=== PATIENT | female | born 1940 | race Hispanic/Latino ===

== ENCOUNTER 2018-12-29 17:20 | Inpatient (IN) | payer MEDICARE ==
--- NOTE | 2018-12-29 17:55 | Event Note ---
ED Screening Note Date of service: 12/29/18 Time: 17:50 ED Screening Note: 78 y/o female comes in for sliding off her bed. C/O lower back and left side and right foot pain. This initial assessment/diagnostic orders/clinical plan/treatment(s) is/are subject to change based on patients health status, clinical progression and re- assessment by fellow clinical providers in the ED. Further treatment and workup at subsequent clinical providers discretion. Patient/guardian urged not to elope from the ED as their condition may be serious if not clinically assessed and managed. Initial orders include:
[2018-12-29 18:17] LABS: Bilirubin,Urine NEG (Negative); Blood,Urine LG (Negative); Color,Urine Yellow (Yellow); Mucus,Urine FEW /HPF; Urobilinogen,Urine < 2.0 mg/dL (<2.0)
[2018-12-29 18:19] LABS: WBC,Urine > 182.0 /HPF (0.0-6.0)
--- NOTE | 2018-12-29 18:52 | XRay Report ---
LUMBAR SPINE 2 VIEWS INDICATION / CLINICAL INFORMATION: back pain. COMPARISON: None available. FINDINGS: Moderate degenerative change. Significant disc space narrowing and hypertrophic spurring at L5-S1. Mu ch less prominent disc space narrowing at L4-5, minimal (5 mm) anterolistheses of L4 on L5. No fracture or other acute abnormality. Signer Name: Fritz Juan MD Signed: 12/29/2018 6:48 PM [facility]station Name: [id number]
[2018-12-29 19:18] LABS: Hematocrit 30.9 % (30.3-42.9); Hemoglobin 10.3 gm/dl (10.1-14.3); Mean Corpuscular HGB Conc 33 % (30-34); Mean Corpuscular Volume 90 fl (79-97); Platelet Count 527 K/mm3 (140-440); Red Blood Count 3.42 M/mm3 (3.65-5.03); Red Cell Distribution Width 13.1 % (13.2-15.2)
[2018-12-29 19:35] LABS: Albumin 3.5 g/dL (3.9-5); Calcium 10.4 mg/dL (8.4-10.2)
[2018-12-29 19:56] LABS: Basophils % (Manual) 0 % (0.0-1.8); Platelet Estimate Appears Increased; RBC Morphology Normal; Total Cells Counted 100
[2018-12-29] MEDS ORDERED: INSULIN REGULAR, HUMAN 100 UNITS/1 ML IV ONE (21:24)
--- NOTE | 2018-12-29 22:12 | Emergency Department Report ---
HPI - General Chief Complaint: Fall Time Seen by Provider: 12/29/18 17:50 - HPI HPI: 78-year-old female presents to the emergency department with complaint of her second fall in 1 week. She slid off the bed when trying to put her slippers on and was unable to get back up. She also complains of elevated blood sugar despite compliance with her glyburide. She complains of some left lower back pain after the fall. She denies hitting her head or any loss of consciousness or any dizziness. She has a past medical history of hyx-[id number] diabetes, hypertension and kidney stones. She denies any vision change, slurred speech or any other neurological deficits. She goes to the [facility] resident clinic for primary care. The patient also complains of having a decreased appetite and decreased oral intake as she says t hat when she eats something it makes her nauseated. ED Past Medical Hx - Past Medical History Previous Medical History?: Yes Hx Hypertension: Yes Hx Diabetes: Yes (type 2) Hx Renal Disease: (kidney stones) Hx Arthritis: Yes Hx Seizures: No Hx Asthma: No Hx HIV: No - Surgical History Hx Appendectomy: Yes Hx Breast Surgery: Yes (RIGHT & LEFT CYSTS) - Social History Smoking Status: Never Smoker Substance Use Type: None - Medications Home Medications: Home Medications Medication Instructions Recorded Confirmed Last Taken Type Aspirin [Adult Low Dose Aspirin EC] 81 mg PO DAILY 06/15/15 06/15/15 Unknown History Atorvastatin [Lipitor] 80 mg PO QHS 06/15/15 06/15/15 Unknown History Cholecalciferol (Vitamin D3) 4,000 unit PO DAILY 06/15/15 06/15/15 Unknown History [Vitamin D3 3,000 unit] Lisinopril/Hydrochlorothiazide 1 tab PO QDAY 06/15/15 06/15/15 Unknown History [Zestoretic 10-12.5 mg] Metformin HCl [Glucophage] 1,000 mg PO BID 06/15/15 06/15/15 Unknown History Timolol 0.5% [Timoptic] 1 drops OP DAILY 06/15/15 06/15/15 Unknown History glipiZIDE [Glucotrol] 10 mg PO QDAY 06/15/15 06/15/15 Unknown History Fluticasone [Flonase] 100 mcg NS QDAY #1 bottle 06/16/15 Unknown Rx levoFLOXacin [Levaquin] 250 mg PO QDAY #8 tablet 06/16/15 Unknown Rx ED Review of Systems ROS: Stated complaint: DIABETIC/FELL TWICE/NOT APPETITE Other details as noted in HPI Comment: All other systems reviewed and negative Constitutional: weakness. denies: chills, fever Eyes: denies: eye pain, vision change ENT: denies: ear pain, throat pain Respiratory: denies: cough, shortness of breath Cardiovascular: denies: chest pain, palpitations Gastrointestinal: nausea. denies: abdominal pain, vomiting Genitourinary: denies: dysuria, discharge Musculoskeletal: back pain. denies: arthralgia Skin: denies: rash, lesions Neurological: denies: headache, numbness, paresthesias Physical Exam - Physical Exam Vital Signs: Vital Signs 12/29/18 12/29/18 17:26 21:20 Temperature 98.8 F Pulse Rate 108 H 89 Respiratory 17 12 Rate Blood Pressure 176/66 Blood Pressure 183/80 [Left] O2 Sat by Pulse 100 98 Oximetry Physical Exam: GENERAL: The patient is well-developed well-nourished. HENT: Normocephalic. Atraumatic. Patient has moist mucous membranes. EYES: Extraocular motions are intact. Pupils equal reactive to light bilaterally. NECK: Supple. Trachea is midline. CHEST/LUNGS: Clear to auscultation. There is no respiratory distress noted. HEART/CARDIOVASCULAR: Regular. There is mild tachycardia. There is no murmur. ABDOMEN: Abdomen is soft, nontender. Patient has normal bowel sounds. There is no abdominal distention. SKIN: Skin is warm and dry. NEURO: The patient is awake, alert, and oriented. The patient is cooperative. The patient has no focal neurologic deficits. Normal speech. Cranial nerves II through XII grossly intact. MUSCULOSKELETAL: There is no tenderness or deformity. There is no evidence of acute injury. ED Course Vital Signs 12/29/18 12/29/18 17:26 21:20 Temperature 98.8 F Pulse Rate 108 H 89 Respiratory 17 12 Rate Blood Pressure 176/66 Blood Pressure 183/80 [Left] O2 Sat by Pulse 100 98 Oximetry ED Medical Decision Making - Lab Data Result diagrams: 12/29/18 19:01 12/29/18 19:01 - Radiology Data Radiology results: image reviewed interpreted by me: X-ray of the lumbar spine does not show any fracture, subluxation or any acute process. - Medical Decision Making This patient presents to the emergency department with the complaint of a fall out of bed while trying to put on her slippers that caused some low back pain. 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 Her serum blood sugar came back at about 550. There is some mild venous acidosis but there is no significant elevation in the anion gap and no ketones found in the urine or serum ketones. She does not appear in diabetic ketoacidosis. She was given IV insulin to start treating the hyperglycemia. The patient does not have a leukocytosis and a urinary tract infection. Urine cultures have been sent and the patient was started on Rocephin. She will be admitted to the hospital for further evaluation and treatment was accepted for admission by the hospitalist, Dr. Nicole. - Differential Diagnosis DKA, HHNK, Sepsis, SIRS, Electrolyte Abnormalities Critical Care Time: No Critical care attestation.: If time is entered above; I have spent that time in minutes in the direct care of this critically ill patient, excluding procedure time. ED Disposition Clinical Impression: Uncontrolled diabetes mellitus Qualifiers: Diabetes mellitus type: type 2 Glycemic state: with hyperglycemia Qualified Code(s): E11.65 - Type 2 diabetes mellitus with hyperglycemia UTI (urinary tract infection) Qualifiers: Urinary tract infection type: acute cystitis Hematuria presence: without hematuria Qualified Code(s): N30.00 - Acute cystitis without hematuria Hypertension Qualifiers: Hypertension type: essential hypertension Qualified Code(s): I10 - Essential (primary) hypertension Leukocytosis Qualifiers: Leukocytosis type: unspecified Qualified Code(s): D72.829 - Elevated white blood cell count, unspecified Disposition: OP ADMIT IP TO THIS HOSP Is pt being admited?: Yes Condition: Fair Time of Disposition: 00:31
[2018-12-29 22:14] LABS: Bilirubin,Urine NEG (Negative); Blood,Urine LG (Negative); Color,Urine Yellow (Yellow); Mucus,Urine FEW /HPF; Urobilinogen,Urine < 2.0 mg/dL (<2.0)
[2018-12-29] MEDS ORDERED: cefTRIAXone/NS 1 GM/50 ML 1 GM/50 ML BAG IV ONE (22:26)
[2018-12-30] MEDS ORDERED: DEXTROSE 50% IN WATER (25GM) 50 ML SYRINGE IV PRN (00:48)
[2018-12-30] MEDS ORDERED: oxyCODONE /ACETAMINOPHEN 5-325MG TAB PO PRN (00:56)
--- NOTE | 2018-12-30 00:58 | History and Physical Report ---
<PHILIP COOMBS - Last Filed: 12/30/18 01:01> History of Present Illness Date of examination: 12/29/18 Date of admission: 12/29/18 23:21 Chief complaint: Recent fall and decreased appetite History of present illness: 68-year-old female with history of hypertension, diabetes, CKD, and kidney stones since [place] ED with complaints of lower back pain after falling earlier today. Pt daughters are present at bedside and have assisted with providing history. Patient states that she slipped off bed and fell onto the sandy or while attempting to put on her slippers earlier today and was unable to get back up. Patient states that this is her second fall within the past week. Patient mentions that she fell on or around December 19 while at home attempted to stand up her knees just gave out. She denies loss of consciousness, head injury/trauma, or headache. However, she is complaining of lower back pain related to her recent fall. Additionally she complains of elevated blood sugar despite being compliant with anti-glycemic medication. She acknowledges decreased appetite and states that she feels nauseated at times. She goes to [facility] for all her primary medical care. Past History Past Medical History: arthritis, diabetes, hypertension, renal failure, other (kidney stones) Past Surgical History: appendectomy, Other (Breast Surgery (Right & left breast cysts)) Social history: no significant social history, lives with family Family history: no significant family history Medications and Allergies Allergies Allergy/AdvReac Type Severity Reaction Status Date / Time chlordiazepoxide HCl Allergy Rash Verified 09/14/13 14:26 [From Librium] Home Medications Medication Instructions Recorded Confirmed Last Taken Type Aspirin [Adult Low Dose Aspirin EC] 81 mg PO DAILY 06/15/15 06/15/15 Unknown History Atorvastatin [Lipitor] 80 mg PO QHS 06/15/15 06/15/15 Unknown History Cholecalciferol (Vitamin D3) 4,000 unit PO DAILY 06/15/15 06/15/15 Unknown History [Vitamin D3 3,000 unit] Lisinopril/Hydrochlorothiazide 1 tab PO QDAY 06/15/15 06/15/15 Unknown History [Zestoretic 10-12.5 mg] Metformin HCl [Glucophage] 1,000 mg PO BID 06/15/15 06/15/15 Unknown History Timolol 0.5% [Timoptic] 1 drops OP DAILY 06/15/15 06/15/15 Unknown History glipiZIDE [Glucotrol] 10 mg PO QDAY 06/15/15 06/15/15 Unknown History Fluticasone [Flonase] 100 mcg NS QDAY #1 bottle 06/16/15 Unknown Rx levoFLOXacin [Levaquin] 250 mg PO QDAY #8 tablet 06/16/15 Unknown Rx Active Meds: Active Medications Acetaminophen (Tylenol) 650 mg PO Q4H PRN PRN Reason: Pain MILD(1-3)/Fever >100.5/NEAL Dextrose (D50w (25gm) Syringe) 50 ml IV Q30MIN PRN; Protocol PRN Reason: Hypoglycemia Docusate Sodium (Colace) 100 mg PO BID ALF Enoxaparin Sodium (Enoxaparin) 30 mg SUB-Q QDAY ALF Hydralazine HCl (Apresoline) 10 mg IV Q4HR PRN PRN Reason: Blood Pressure Sodium Chloride (Nacl 0.9% 1000 Ml) 1,000 mls @ 75 mls/hr IV DIRECT ALF Ceftriaxone Sodium (Rocephin/Ns 1 Gm/50 Ml) 1 gm in 50 mls @ 100 mls/hr IV Q24HR ALF; Protocol Insulin Glargine (Lantus) 20 units SUB-Q QAMDIAB ALF Insulin Human Lispro (Humalog) 0 unit SUB-Q Q4HR ALF; Protocol Ondansetron HCl (Zofran) 4 mg IV Q8H PRN PRN Reason: Nausea And Vomiting Oxycodone/Acetaminophen (Percocet 5/325) 1 tab PO Q6H PRN PRN Reason: Pain, Moderate (4-6) Sodium Chloride (Sodium Chloride Flush Syringe 10 Ml) 10 ml IV BID ALF Sodium Chloride (Sodium Chloride Flush Syringe 10 Ml) 10 ml IV PRN PRN PRN Reason: LINE FLUSH Review of Systems All systems: negative Constitutional: poor appetite Musculoskeletal: low back pain, frequent falls (2x in past week) Exam - Physical Exam Narrative exam: Physical exam General appearance: Present: No acute distress, alert and oriented 3, well developed, pleasant, older adult female - EENT Eyes: Present: PERRL, EOM intact ENT: hearing intact, missing teeth - Neck Neck: Present: supple, normal ROM - Respiratory Respiratory effort: Non-labored Respiratory: CTA bilaterally - Cardiovascular Heart rate: 108 (bpm) Rhythm: Sinus tachycardia Heart Sounds: Present: S1 & S2. Absent: rub, click - Extremities Extremities: no ischemia, pulses intact, - Peripheral Assessment Peripheral Pulses: within normal limits - Abdominal General gastrointestinal: soft, non-tender, normal bowel sounds - Integumentary Integumentary: Present: warm, dry - Musculoskeletal Musculoskeletal: Generalized bilateral lower extremity weakness, 3/5 BLE motor strength, Able to move all extremities -Neurological Neurological: CN II-XII intact - Psychiatric Psychiatric: Appropriate for situation ,cooperative - Constitutional Vitals: Temp Pulse Resp BP Pulse Ox 98.8 F 78 14 158/80 97 12/29/18 17:26 12/29/18 22:45 12/29/18 22:45 12/29/18 22:45 12/29/18 22:45 Results - Labs CBC & Chem 7: 12/29/18 19:01 12/29/18 19: Labs: Laboratory Last Values WBC 20.2 K/mm3 (4.5-11.0) H 12/29/18 19: RBC 3.42 M/mm3 (3.65-5.03) L 12/29/18 19: Hgb 10.3 gm/dl (10.1-14.3) 12/29/18 19: Hct 30.9 % (30.3-42.9) 12/29/18 19: MCV 90 fl (79-97) 12/29/18 19: MCH 30 pg (28-32) 12/29/18 19: MCHC 33 % (30-34) 12/29/18 19: RDW 13.1 % (13.2-15.2) L 12/29/18 19: Plt Count 527 K/mm3 (140-440) H 12/29/18 19: Add Manual Diff Complete 12/29/18 19: Total Counted 100 12/29/18 19: Seg Neuts % (Manual) 93.0 % (40.0-70.0) H 12/29/18 19: Band Neutrophils % 0 % 12/29/18 19: Lymphocytes % (Manual) 3.0 % (13.4-35.0) L 12/29/18 19:01 Reactive Lymphs % (Man) 0 % 12/29/18 19:01 Monocytes % (Manual) 3.0 % (0.0-7.3) 12/29/18 19:01 Eosinophils % (Manual) 1.0 % (0.0-4.3) 12/29/18 19:01 Basophils % (Manual) 0 % (0.0-1.8) 12/29/18 19:01 Metamyelocytes % 0 % 12/29/18 19:01 Myelocytes % 0 % 12/29/18 19:01 Promyelocytes % 0 % 12/29/18 19:01 Blast Cells % 0 % 12/29/18 19:01 Nucleated RBC % Not Reportable 12/29/18 19: Seg Neutrophils # Man 18.8 K/mm3 (1.8-7.7) H 12/29/18 19:01 Band Neutrophils # 0.0 K/mm3 12/29/18 19:01 Lymphocytes # (Manual) 0.6 K/mm3 (1.2-5.4) L 12/29/18 19:01 Abs React Lymphs (Man) 0.0 K/mm3 12/29/18 19:01 Monocytes # (Manual) 0.6 K/mm3 (0.0-0.8) 12/29/18 19:01 Eosinophils # (Manual) 0.2 K/mm3 (0.0-0.4) 12/29/18 19:01 Basophils # (Manual) 0.0 K/mm3 (0.0-0.1) 12/29/18 19:01 Metamyelocytes # 0.0 K/mm3 12/29/18 19:01 Myelocytes # 0.0 K/mm3 12/29/18 19:01 Promyelocytes # 0.0 K/mm3 12/29/18 19:01 Blast Cells # 0.0 K/mm3 12/29/18 19:01 WBC Morphology Not Reportable 12/29/18 19:01 Hypersegmented Neuts Not Reportable 12/29/18 19:01 Hyposegmented Neuts Not Reportable 12/29/18 19:01 Hypogranular Neuts Not Reportable 12/29/18 19:01 Smudge Cells Not Reportable 12/29/18 19:01 Toxic Granulation Not Reportable 12/29/18 19:01 Toxic Vacuolation Not Reportable 12/29/18 19:01 Dohle Bodies Not Reportable 12/29/18 19:01 Pelger-Huet Anomaly Not Reportable 12/29/18 19:01 Ema Rods Not Reportable 12/29/18 19:01 Platelet Estimate Appears increased 12/29/18 19:01 Clumped Platelets Not Reportable 12/29/18 19:01 Plt Clumps, EDTA Not Reportable 12/29/18 19:01 Large Platelets Not Reportable 12/29/18 19:01 Giant Platelets Not Reportable 12/29/18 19:01 Platelet Satelliting Not Reportable 12/29/18 19:01 Plt Morphology Comment Not Reportable 12/29/18 19:01 RBC Morphology Normal 12/29/18 19:01 Dimorphic RBCs Not Reportable 12/29/18 19:01 Polychromasia Not Reportable 12/29/18 19:01 Hypochromasia Not Reportable 12/29/18 19:01 Poikilocytosis Not Reportable 12/29/18 19:01 Anisocytosis Not Reportable 12/29/18 19:01 Microcytosis Not Reportable 12/29/18 19:01 Macrocytosis Not Reportable 12/29/18 19:01 Spherocytes Not Reportable 12/29/18 19:01 Pappenheimer Bodies Not Reportable 12/29/18 19:01 Sickle Cells Not Reportable 12/29/18 19:01 Target Cells Not Reportable 12/29/18 19:01 Tear Drop Cells Not Reportable 12/29/18 19:01 Ovalocytes Not Reportable 12/29/18 19:01 Helmet Cells Not Reportable 12/29/18 19:01 [place] Bodies Not Reportable 12/29/18 19:01 Savage Rings Not Reportable 12/29/18 19:01 Erasmo Cells Not Reportable 12/29/18 19:01 Bite Cells Not Reportable 12/29/18 19:01 Crenated Cell Not Reportable 12/29/18 19:01 Elliptocytes Not Reportable 12/29/18 19:01 Acanthocytes (Spur) Not Reportable 12/29/18 19:01 Rouleaux Not Reportable 12/29/18 19:01 Hemoglobin C Crystals Not Reportable 12/29/18 19:01 Schistocytes Not Reportable 12/29/18 19:01 Malaria parasites Not Reportable 12/29/18 19:01 Michael Bodies Not Reportable 12/29/18 19: Hem Pathologist Commnt No 12/29/18 19: VBG pH 7.301 (7.320-7.420) L 12/29/18 19:01 Sodium 128 mmol/L (137-145) L 12/29/18 19:01 Potassium 5.3 mmol/L (3.6-5.0) H 12/29/18 19: Chloride 98.4 mmol/L (98-107) 12/29/18 19: Carbon Dioxide 14 mmol/L (22-30) L 12/29/18 19: Anion Gap 21 mmol/L 12/29/18 19: BUN 31 mg/dL (7-17) H 12/29/18 19: Creatinine 1.6 mg/dL (0.7-1.2) H 12/29/18 19: Estimated GFR 31 ml/min 12/29/18 19: BUN/Creatinine Ratio 19 % 12/29/18 19: Glucose 527 mg/dL (65-100) H* 12/29/18 19: POC Glucose 356 (70-105) H 12/30/18 00:18 Ketones Quantitative Negative (Negative) 12/29/18 19: Calcium 10.4 mg/dL (8.4-10.2) H 12/29/18 19:01 Total Bilirubin 0.30 mg/dL (0.1-1.2) 12/29/18 19: AST 17 units/L (5-40) 12/29/18 19: ALT 10 units/L (7-56) 12/29/18 19: Alkaline Phosphatase 193 units/L (35-129) H 12/29/18 19:01 Total Protein 7.7 g/dL (6.3-8.2) 12/29/18 19: Albumin 3.5 g/dL (3.9-5) L 12/29/18 19:01 Albumin/Globulin Ratio 0.8 % 12/29/18 19:01 Urine Color Yellow (Yellow) 12/29/18 Unknown Urine Turbidity Cloudy (Clear) 12/29/18 Unknown Urine pH 5.0 (5.0-7.0) 12/29/18 Unknown Ur Specific [place] 1.011 (1.003-1.030) 12/29/18 Unknown Urine Protein 100 mg/dl mg/dL (Negative) 12/29/18 Unknown Urine Glucose (UA) >=500 mg/dL (Negative) 12/29/18 Unknown Urine Ketones Neg mg/dL (Negative) 12/29/18 Unknown Urine Blood Lg (Negative) 12/29/18 Unknown Urine Nitrite Neg (Negative) 12/29/18 Unknown Urine Bilirubin Neg (Negative) 12/29/18 Unknown Urine Urobilinogen < 2.0 mg/dL (<2.0) 12/29/18 Unknown Ur Leukocyte Esterase Lg (Negative) 12/29/18 Unknown Urine WBC (Auto) > 182.0 /HPF (0.0-6.0) H 12/29/18 Unknown Urine RBC (Auto) 27.0 /HPF (0.0-6.0) 12/29/18 Unknown U Epithel Cells (Auto) 1.0 /HPF (0-13.0) 12/29/18 Unknown Urine WBC Clumps 2+ /HPF 12/29/18 Unknown Urine Mucus Few /HPF 12/29/18 Unknown - Imaging and Cardiology Imaging and Cardiology: XR Spine Lumbosacral: FINDINGS: Moderate degenerative change. Significant disc space narrowing and hypertrophic spurring at L5-S1. Much less prominent disc space narrowing at L4-5, minimal (5 mm) anterolistheses of L4 on L5. No fracture or other acute abnormality. Assessment and Plan Assessment and plan: 68-year-old female with history of hypertension, diabetes, CKD, and kidney stones since [place] with complaints of lower back pain after falling earlier today. Urinary tract infection -UA positive for UTI -urine wbc >182 -Urine culture pending -on IV Abx DM -With hyperglycemia -Blood glucose on admission 527 -Urine and blood negative for ketones -POC BG monitoring -Scheduled Lantus and SSI coverage prn -HgbA1C pending ASHA -Cr on admission 1.6 -??CKD -Hydrate with IVF -Avoid nephrotoxic agents -Renal dose all meds Hyperkalemia -on admission 5.3, -Receiving IVF -Continue to monitor electrolytes Recent Fall -XR Spine lumbosacral did not show any fracture or other acute abnormality, but did show moderate degenerative changes. -Pt fell once day and once 7 days ago -PT/OT consult pending -Initiate fall precautions -Continue Supportive Care HTN -Monitor BP -Resume home hypertensive meds when medication reconciliation has been updated -IV hydralazine when necessary DVT PPX -Lovenox Advance Directives: No VTE prophylaxis?: Chemical Plan of care discussed with patient/family: Yes <JAINSHELIA Garcia - Last Filed: 12/30/18 04:16> History of Present Illness Date of admission: 12/29/18 23:21 Medications and Allergies Active Meds: Active Medications Acetaminophen (Tylenol) 650 mg PO Q4H PRN PRN Reason: Pain MILD(1-3)/Fever >100.5/NEAL Last Admin: 12/30/18 01:41 Dose: 650 mg Documented by: Dextrose (D50w (25gm) Syringe) 0 ml IV Q30MIN PRN; Protocol PRN Reason: Hypoglycemia Docusate Sodium (Colace) 100 mg PO BID ALF Enoxaparin Sodium (Enoxaparin) 30 mg SUB-Q QDAY ALF Hydralazine HCl (Apresoline) 10 mg IV Q4H PRN PRN Reason: Blood Pressure Sodium Chloride (Nacl 0.9% 1000 Ml) 1,000 mls @ 75 mls/hr IV DIRECT ALF Last Admin: 12/30/18 04:02 Dose: 75 mls/hr Documented by: Ceftriaxone Sodium (Rocephin/Ns 1 Gm/50 Ml) 1 gm in 50 mls @ 100 mls/hr IV Q24HR ALF; Protocol Insulin Glargine (Lantus) 20 units SUB-Q QAMDIAB ALF Insulin Human Lispro (Humalog) 0 unit SUB-Q Q4HR ALF; Protocol Ondansetron HCl (Zofran) 4 mg IV Q8H PRN PRN Reason: Nausea And Vomiting Sodium Chloride (Sodium Chloride Flush Syringe 10 Ml) 10 ml IV BID ALF Sodium Chloride (Sodium Chloride Flush Syringe 10 Ml) 10 ml IV PRN PRN PRN Reason: LINE FLUSH Exam - Constitutional Vitals: Temp Pulse Resp BP Pulse Ox 102.0 F H 107 H 20 134/59 95 12/30/18 01:59 12/30/18 01:59 12/30/18 01:59 12/30/18 01:59 12/30/18 01:59 Results - Labs CBC & Chem 7: 12/29/18 19:01 12/29/18 19: Labs: Laboratory Last Values WBC 20.2 K/mm3 (4.5-11.0) H 12/29/18 19: RBC 3.42 M/mm3 (3.65-5.03) L 12/29/18 19: Hgb 10.3 gm/dl (10.1-14.3) 12/29/18 19: Hct 30.9 % (30.3-42.9) 12/29/18: MCV 90 fl (79-97) 12/29/18 19: MCH 30 pg (28-32) 12/29/18: MCHC 33 % (30-34) 12/29/18 19: RDW 13.1 % (13.2-15.2) L 12/29/18: Plt Count 527 K/mm3 (140-440) H 12/29/18 19: Add Manual Diff Complete 12/29/18: Total Counted 100 12/29/18: Seg Neuts % (Manual) 93.0 % (40.0-70.0) H 12/29/18 19: Band Neutrophils % 0 % 12/29/18 19: Lymphocytes % (Manual) 3.0 % (13.4-35.0) L 12/29/18 19: Reactive Lymphs % (Man) 0 % 12/29/18 19: Monocytes % (Manual) 3.0 % (0.0-7.3) 12/29/18 19: Eosinophils % (Manual) 1.0 % (0.0-4.3) 12/29/18 19: Basophils % (Manual) 0 % (0.0-1.8) 12/29/18 19: Metamyelocytes % 0 % 12/29/18 19: Myelocytes % 0 % 12/29/18 19: Promyelocytes % 0 % 12/29/18 19: Blast Cells % 0 % 12/29/18 19: Nucleated RBC % Not Reportable 12/29/18: Seg Neutrophils # Man 18.8 K/mm3 (1.8-7.7) H 12/29/18 19:01 Band Neutrophils # 0.0 K/mm3 12/29/18 19:01 Lymphocytes # (Manual) 0.6 K/mm3 (1.2-5.4) L 12/29/18 19:01 Abs React Lymphs (Man) 0.0 K/mm3 12/29/18 19:01 Monocytes # (Manual) 0.6 K/mm3 (0.0-0.8) 12/29/18 19:01 Eosinophils # (Manual) 0.2 K/mm3 (0.0-0.4) 12/29/18 19:01 Basophils # (Manual) 0.0 K/mm3 (0.0-0.1) 12/29/18 19:01 Metamyelocytes # 0.0 K/mm3 12/29/18 19:01 Myelocytes # 0.0 K/mm3 12/29/18 19:01 Promyelocytes # 0.0 K/mm3 12/29/18 19:01 Blast Cells # 0.0 K/mm3 12/29/18 19:01 WBC Morphology Not Reportable 12/29/18 19:01 Hypersegmented Neuts Not Reportable 12/29/18 19:01 Hyposegmented Neuts Not Reportable 12/29/18 19:01 Hypogranular Neuts Not Reportable 12/29/18 19:01 Smudge Cells Not Reportable 12/29/18 19:01 Toxic Granulation Not Reportable 12/29/18 19:01 Toxic Vacuolation Not Reportable 12/29/18 19:01 Dohle Bodies Not Reportable 12/29/18 19:01 Pelger-Huet Anomaly Not Reportable 12/29/18 19:01 Ema Rods Not Reportable 12/29/18 19:01 Platelet Estimate Appears increased 12/29/18 19:01 Clumped Platelets Not Reportable 12/29/18 19:01 Plt Clumps, EDTA Not Reportable 12/29/18 19:01 Large Platelets Not Reportable 12/29/18 19:01 Giant Platelets Not Reportable 12/29/18 19:01 Platelet Satelliting Not Reportable 12/29/18 19:01 Plt Morphology Comment Not Reportable 12/29/18 19:01 RBC Morphology Normal 12/29/18 19:01 Dimorphic RBCs Not Reportable 12/29/18 19:01 Polychromasia Not Reportable 12/29/18 19:01 Hypochromasia Not Reportable 12/29/18 19:01 Poikilocytosis Not Reportable 12/29/18 19:01 Anisocytosis Not Reportable 12/29/18 19:01 Microcytosis Not Reportable 12/29/18 19:01 Macrocytosis Not Reportable 12/29/18 19:01 Spherocytes Not Reportable 12/29/18 19:01 Pappenheimer Bodies Not Reportable 12/29/18 19:01 Sickle Cells Not Reportable 12/29/18 19:01 Target Cells Not Reportable 12/29/18 19:01 Tear Drop Cells Not Reportable 12/29/18 19:01 Ovalocytes Not Reportable 12/29/18 19:01 Helmet Cells Not Reportable 12/29/18 19:01 [place] Bodies Not Reportable 12/29/18 19:01 Savage Rings Not Reportable 12/29/18 19:01 [place] Cells Not Reportable 12/29/18 19:01 Bite Cells Not Reportable 12/29/18 19:01 Crenated Cell Not Reportable 12/29/18 19:01 Elliptocytes Not Reportable 12/29/18 19:01 Acanthocytes (Spur) Not Reportable 12/29/18 19:01 Rouleaux Not Reportable 12/29/18 19:01 Hemoglobin C Crystals Not Reportable 12/29/18 19:01 Schistocytes Not Reportable 12/29/18 19:01 Malaria parasites Not Reportable 12/29/18 19:01 Michael Bodies Not Reportable 12/29/18 19:01 Hem Pathologist Commnt No 12/29/18 19:01 VBG pH 7.301 (7.320-7.420) L 12/29/18 19:01 Sodium 128 mmol/L (137-145) L 12/29/18 19:01 Potassium 5.3 mmol/L (3.6-5.0) H 12/29/18 19:01 Chloride 98.4 mmol/L (98-107) 12/29/18 19:01 Carbon Dioxide 14 mmol/L (22-30) L 12/29/18 19:01 Anion Gap 21 mmol/L 12/29/18 19:01 BUN 31 mg/dL (7-17) H 12/29/18 19:01 Creatinine 1.6 mg/dL (0.7-1.2) H 12/29/18 19:01 Estimated GFR 31 ml/min 12/29/18 19: BUN/Creatinine Ratio 19 % 12/29/18 19:01 Glucose 527 mg/dL (65-100) H* 12/29/18 19:01 POC Glucose 356 (70-105) H 12/30/18 00:18 Ketones Quantitative Negative (Negative) 12/29/18 19: Calcium 10.4 mg/dL (8.4-10.2) H 12/29/18 19:01 Total Bilirubin 0.30 mg/dL (0.1-1.2) 12/29/18 19: AST 17 units/L (5-40) 12/29/18 19: ALT 10 units/L (7-56) 12/29/18 19: Alkaline Phosphatase 193 units/L (35-129) H 12/29/18 19: Total Protein 7.7 g/dL (6.3-8.2) 12/29/18 19: Albumin 3.5 g/dL (3.9-5) L 12/29/18 19: Albumin/Globulin Ratio 0.8 % 12/29/18 19: Urine Color Yellow (Yellow) 12/29/18 Unknown Urine Turbidity Cloudy (Clear) 12/29/18 Unknown Urine pH 5.0 (5.0-7.0) 12/29/18 Unknown Ur Specific [place] 1.011 (1.003-1.030) 12/29/18 Unknown Urine Protein 100 mg/dl mg/dL (Negative) 12/29/18 Unknown Urine Glucose (UA) >=500 mg/dL (Negative) 12/29/18 Unknown Urine Ketones Neg mg/dL (Negative) 12/29/18 Unknown Urine Blood Lg (Negative) 12/29/18 Unknown Urine Nitrite Neg (Negative) 12/29/18 Unknown Urine Bilirubin Neg (Negative) 12/29/18 Unknown Urine Urobilinogen < 2.0 mg/dL (<2.0) 12/29/18 Unknown Ur Leukocyte Esterase Lg (Negative) 12/29/18 Unknown Urine WBC (Auto) > 182.0 /HPF (0.0-6.0) H 12/29/18 Unknown Urine RBC (Auto) 27.0 /HPF (0.0-6.0) 12/29/18 Unknown U Epithel Cells (Auto) 1.0 /HPF (0-13.0) 12/29/18 Unknown Urine WBC Clumps 2+ /HPF 12/29/18 Unknown Urine Mucus Few /HPF 12/29/18 Unknown Assessment and Plan Assessment and plan: 78-year-old woman with a history of hypertension, diabetes was brought to the emergency room because she sustained 2 falls this week 1 today. Daughter at bedside state that she's been having nausea, decreased oral intake. Patient found to have sepsis secondary to urinary tract infection, GERD IV Rocephin current management of diabetes uncontrolled.
[2018-12-30] MEDS ORDERED: ACETAMINOPHEN 325 MG TAB ONE (01:39)
[2018-12-30] MEDS: ACETAMINOPHEN 325 MG TAB PO PRN (01:41)
[2018-12-30] MEDS: SODIUM CHLORIDE 0.9% 1000 ML 1,000 ML IV SCH (04:02)
[2018-12-30] MEDS: INSULIN LISPRO 100 UNIT/ML SUB-Q SCH ×5 (08:10→19:04)
[2018-12-30] MEDS: INSULIN GLARGINE 100 UNITS/ML SUB-Q SCH (08:11)
[2018-12-30] MEDS: DOCUSATE SODIUM 100 MG CAP PO SCH (10:30)
[2018-12-30] MEDS: ENOXAPARIN 30 MG/0.3 ML INJ SUB-Q SCH (10:30)
[2018-12-30] MEDS: hydrALAZINE 20 MG/1 ML INJ IV PRN (10:30)
[2018-12-30] MEDS: cefTRIAXone/NS 1 GM/50 ML 1 GM/50 ML BAG IV SCH (10:31)
[2018-12-30] MEDS ORDERED: INSULIN LISPRO 100 UNIT/ML SUB-Q ONE (11:00)
--- NOTE | 2018-12-30 16:36 | Progress Note ---
Assessment and Plan 68-year-old female with history of hypertension, diabetes, CKD, and kidney stones since [facility] ED with complaints of lower back pain after falling earlier today. Urinary tract infection -UA positive for UTI -urine wbc >182 -Urine culture pending -on IV Abx DM -With hyperglycemia -Blood glucose on admission 527 -Urine and blood negative for ketones -POC BG monitoring -Scheduled Lantus and SSI coverage prn -HgbA1C High-in 13's ASHA -Cr on admission 1.6 -??CKD -Hydrate with IVF -Avoid nephrotoxic agents -Renal dose all meds Hyperkalemia -on admission 5.3, -Receiving IVF -Continue to monitor electrolytes Recent Fall -XR Spine lumbosacral did not show any fracture or other acute abnormality, but did show moderate degenerative changes. -Pt fell once day and once 7 days ago -PT/OT consult pending -Initiate fall precautions -Continue Supportive Care May need rehab and SNF HTN -Monitor BP -Resume home hypertensive meds when medication reconciliation has been updated -IV hydralazine when necessary DVT PPX -Lovenox Advance Directives: No VTE prophylaxis?: Chemical Plan of care discussed with patient/family: Yes Subjective Date of service: 12/30/18 Principal diagnosis: UTI,Frequent falls Interval history: 68-year-old female with history of hypertension, diabetes, CKD, and kidney stones since [facility] ED with complaints of lower back pain after falling earlier today. Pt daughters are present at bedside and have assisted with providing history. Patient states that she slipped off bed and fell onto the floor while attempting to put on her slippers earlier today and was unable to get back up. Patient states that this is her second fall within the past week. Patient mentions that she fell on or around December 19 while at home attempted to stand up her knees just gave out. She denies loss of consciousness, head injury/trauma, or headache. However, she is complaining of lower back pain r elated to her recent fall. Additionally she complains of elevated blood sugar despite being compliant with anti-glycemic medication. She acknowledges decreased appetite and states that she feels nauseated at times. She goes to [facility] for all her primary medical care. Objective - Constitutional Vitals: Vital Signs - 12hr 12/30/18 12/30/18 12/30/18 07:41 10:00 12:49 Temperature 98.0 F 99.4 F Pulse Rate 111 H 98 H 106 H Respiratory 20 20 Rate Blood Pressure 237/98 139/56 O2 Sat by Pulse 97 96 Oximetry General appearance: Present: no acute distress, well-nourished - EENT Eyes: PERRL, EOM intact ENT: hearing intact, clear oral mucosa Ears: bilateral: normal - Neck Neck: supple, normal ROM - Respiratory Respiratory effort: normal Respiratory: bilateral: CTA - Breasts Breasts: normal - Cardiovascular Rhythm: regular Heart Sounds: Present: S1 & S2. Absent: gallop, rub Extremities: pulses intact, No edema, normal color, Full ROM - Gastrointestinal General gastrointestinal: Present: soft, non-tender, non-distended, normal bowel sounds - Genitourinary Female genitourinary: normal - Integumentary Integumentary: clear, warm, dry - Musculoskeletal Musculoskeletal: 1, strength equal bilaterally - Neurologic Neurologic: moves all extremities - Psychiatric Psychiatric: memory intact, appropriate mood/affect, intact judgment & insight - Labs CBC & Chem 7: 12/31/18 04:31 12/31/18 04:31 Labs: Abnormal lab results 12/29/18 12/29/18 12/29/18 Range/Units 17:53 18:02 19:01 WBC 20.2 H (4.5-11.0) K/mm3 RBC 3.42 L (3.65-5.03) M/mm3 RDW 13.1 L (13.2-15.2) % Plt Count 527 H (140-440) K/mm3 Seg Neuts % (Manual) 93.0 H (40.0-70.0) % Lymphocytes % (Manual) 3.0 L (13.4-35.0) % Seg Neutrophils # Man 18.8 H (1.8-7.7) K/mm3 Lymphocytes # (Manual) 0.6 L (1.2-5.4) K/mm3 VBG pH (7.320-7.420) Sodium (137-145) mmol/L Potassium (3.6-5.0) mmol/L Carbon Dioxide (22-30) mmol/L BUN (7-17) mg/dL Creatinine (0.7-1.2) mg/dL Glucose (65-100) mg/dL POC Glucose 484 H (70-105) Hemoglobin A1c (4-6) % Calcium (8.4-10.2) mg/dL Alkaline Phosphatase (35-129) units/L Albumin (3.9-5) g/dL Urine WBC (Auto) 171.0 H (0.0-6.0) /HPF 12/29/18 12/29/18 12/29/18 Range/Units 19:01 19:01 Unknown WBC (4.5-11.0) K/mm3 RBC (3.65-5.03) M/mm3 RDW (13.2-15.2) % Plt Count (140-440) K/mm3 Seg Neuts % (Manual) (40.0-70.0) % Lymphocytes % (Manual) (13.4-35.0) % Seg Neutrophils # Man (1.8-7.7) K/mm3 Lymphocytes # (Manual) (1.2-5.4) K/mm3 VBG pH 7.301 L (7.320-7.420) Sodium 128 L (137-145) mmol/L Potassium 5.3 H (3.6-5.0) mmol/L Carbon Dioxide 14 L (22-30) mmol/L BUN 31 H (7-17) mg/dL Creatinine 1.6 H (0.7-1.2) mg/dL Glucose 527 H* (65-100) mg/dL POC Glucose (70-105) Hemoglobin A1c (4-6) % Calcium 10.4 H (8.4-10.2) mg/dL Alkaline Phosphatase 193 H (35-129) units/L Albumin 3.5 L (3.9-5) g/dL Urine WBC (Auto) > 182.0 H (0.0-6.0) /HPF 12/30/18 12/30/18 12/30/18 Range/Units 00:18 03:34 07:52 WBC (4.5-11.0) K/mm3 RBC (3.65-5.03) M/mm3 RDW (13.2-15.2) % Plt Count (140-440) K/mm3 Seg Neuts % (Manual) (40.0-70.0) % Lymphocytes % (Manual) (13.4-35.0) % Seg Neutrophils # Man (1.8-7.7) K/mm3 Lymphocytes # (Manual) (1.2-5.4) K/mm3 VBG pH (7.320-7.420) Sodium (137-145) mmol/L Potassium (3.6-5.0) mmol/L Carbon Dioxide (22-30) mmol/L BUN (7-17) mg/dL Creatinine (0.7-1.2) mg/dL Glucose (65-100) mg/dL POC Glucose 356 H 376 H (70-105) Hemoglobin A1c 13.0 H (4-6) % Calcium (8.4-10.2) mg/dL Alkaline Phosphatase (35-129) units/L Albumin (3.9-5) g/dL Urine WBC (Auto) (0.0-6.0) /HPF 12/30/18 12/30/18 Range/Units 10:29 15:11 WBC (4.5-11.0) K/mm3 RBC (3.65-5.03) M/mm3 RDW (13.2-15.2) % Plt Count (140-440) K/mm3 Seg Neuts % (Manual) (40.0-70.0) % Lymphocytes % (Manual) (13.4-35.0) % Seg Neutrophils # Man (1.8-7.7) K/mm3 Lymphocytes # (Manual) (1.2-5.4) K/mm3 VBG pH (7.320-7.420) Sodium (137-145) mmol/L Potassium (3.6-5.0) mmol/L Carbon Dioxide (22-30) mmol/L BUN (7-17) mg/dL Creatinine (0.7-1.2) mg/dL Glucose (65-100) mg/dL POC Glucose 435 H 253 H (70-105) Hemoglobin A1c (4-6) % Calcium (8.4-10.2) mg/dL Alkaline Phosphatase (35-129) units/L Albumin (3.9-5) g/dL Urine WBC (Auto) (0.0-6.0) /HPF
--- NOTE | 2018-12-30 17:58 | Consultation ---
History of Present Illness Consult date: 12/30/18 Chief complaint: falls History of present illness: This is a 78 YO F who was admitted with frequent falls. Family says she has not been eating much because she is nauseated. Also falls a lot. No LOC. Did not hit her head. Past History Past Medical History: arthritis, diabetes, hypertension, renal failure, other (kidney stones) Past Surgical History: appendectomy, Other (Breast Surgery (Right & left breast cysts)) Social history: no significant social history, lives with family Family history: no significant family history Medications and Allergies Allergies Allergy/AdvReac Type Severity Reaction Status Date / Time chlordiazepoxide HCl Allergy Rash Verified 09/14/13 14:26 [From Librium] Home Medications Medication Instructions Recorded Confirmed Last Taken Type Glimepiride [Amaryl] 2 mg PO QAM 12/30/18 12/30/18 12/29/18 10:00 History Losartan [Cozaar] 50 mg PO QDAY 12/30/18 12/30/18 12/29/18 10:00 History hydroCHLOROthiazide [Hctz] 12.5 mg PO QDAY 12/30/18 12/30/18 12/29/18 10:00 History Active Meds: Active Medications Acetaminophen (Tylenol) 650 mg PO Q4H PRN PRN Reason: Pain MILD(1-3)/Fever >100.5/NEAL Last Admin: 12/30/18 01:41 Dose: 650 mg Documented by: Dextrose (D50w (25gm) Syringe) 0 ml IV Q30MIN PRN; Protocol PRN Reason: Hypoglycemia Docusate Sodium (Colace) 100 mg PO BID [facility] Last Admin: 12/30/18 10:30 Dose: 100 mg Documented by: Enoxaparin Sodium (Enoxaparin) 30 mg SUB-Q QDAY [facility] Last Admin: 12/30/18 10:30 Dose: 30 mg Documented by: Hydralazine HCl (Apresoline) 10 mg IV Q4H PRN PRN Reason: Blood Pressure Last Admin: 12/30/18 10:30 Dose: 10 mg Documented by: Sodium Chloride (Nacl 0.9% 1000 Ml) 1,000 mls @ 75 mls/hr IV DIRECT [facility] Last Admin: 12/30/18 04:02 Dose: 75 mls/hr Documented by: Ceftriaxone Sodium (Rocephin/Ns 1 Gm/50 Ml) 1 gm in 50 mls @ 100 mls/hr IV Q24HR [facility]; Protocol Last Admin: 12/30/18 10:31 Dose: 100 mls/hr Documented by: Insulin Glargine (Lantus) 20 units SUB-Q QAMDIAB [facility] Last Admin: 12/30/18 08:11 Dose: 20 units Documented by: Insulin Human Lispro (Humalog) 0 unit SUB-Q Q4HR [facility]; Protocol Last Admin: 12/30/18 16:12 Dose: 4 unit Documented by: Ondansetron HCl (Zofran) 4 mg IV Q8H PRN PRN Reason: Nausea And Vomiting Sodium Chloride (Sodium Chloride Flush Syringe 10 Ml) 10 ml IV BID [facility] Last Admin: 12/30/18 10:31 Dose: 10 ml Documented by: Sodium Chloride (Sodium Chloride Flush Syringe 10 Ml) 10 ml IV PRN PRN PRN Reason: LINE FLUSH Review of Systems Neurological: other (falls) Physical Examination - Vital Signs Vital Signs: Vital Signs Temp Pulse Resp BP Pulse Ox 98.8 F 108 H 17 176/66 100 12/29/18 17:26 12/29/18 17:26 12/29/18 17:26 12/29/18 17:26 12/29/18 17:26 - Constitutional General appearance: comfortable - EENT EENT: Present: mucous membranes moist - Respiratory Respiratory: Present: lungs clear - Cardiovascular Cardiovascular: Present: regular rate Extremities: Present: no peripheral edema bilatateraly - Gastrointestinal Gastrointestinal: Present: normoactive bowel sounds - Integumentary Integumentary: Present: normal - Neurologic Cranial nerve examination: PERRL, EOMI, V1/V2/V3 grossly intact, face symmetric, tongue midline Motor examination - right side: 4/5: biceps, triceps, wrist flexion, wrist extension, cook vegetable, hip flexors, knee extensors, dorsiflexion, toe extension (EHL), plantarflexion Motor examination - left side: 4/5: biceps, triceps, wrist flexion, wrist exten jojo, cook vegetable, hip flexors, knee extensors, dorsiflexion, toe extension (EHL), plantarflexion Reflex and gait examination: other (unsteady) Reflexes: 0: ankle, bicep, knee, tricep - Psychiatric Psychiatric: Present: mood/affect appropriate Results - Laboratory Findings CBC and BMP: 12/29/18 19:01 12/30/18 04:12 Abnormal Lab Findings: Abnormal Labs 12/29/18 12/29/18 12/29/18 17:53 18:02 19:01 WBC 20.2 H RBC 3.42 L RDW 13.1 L Plt Count 527 H Seg Neuts % (Manual) 93.0 H Lymphocytes % (Manual) 3.0 L Seg Neutrophils # Man 18.8 H Lymphocytes # (Manual) 0.6 L VBG pH Sodium Potassium Carbon Dioxide BUN Creatinine Glucose POC Glucose 484 H Hemoglobin A1c Calcium Alkaline Phosphatase Albumin Urine WBC (Auto) 171.0 H 12/29/18 12/29/18 12/29/18 19:01 19:01 Unknown WBC RBC RDW Plt Count Seg Neuts % (Manual) Lymphocytes % (Manual) Seg Neutrophils # Man Lymphocytes # (Manual) VBG pH 7.301 L Sodium 128 L Potassium 5.3 H Carbon Dioxide 14 L BUN 31 H Creatinine 1.6 H Glucose 527 H* POC Glucose Hemoglobin A1c Calcium 10.4 H Alkaline Phosphatase 193 H Albumin 3.5 L Urine WBC (Auto) > 182.0 H 12/30/18 12/30/18 12/30/18 00:18 03:34 07:52 WBC RBC RDW Plt Count Seg Neuts % (Manual) Lymphocytes % (Manual) Seg Neutrophils # Man Lymphocytes # (Manual) VBG pH Sodium Potassium Carbon Dioxide BUN Creatinine Glucose POC Glucose 356 H 376 H Hemoglobin A1c 13.0 H Calcium Alkaline Phosphatase Albumin Urine WBC (Auto) 12/30/18 12/30/18 10:29 15:11 WBC RBC RDW Plt Count Seg Neuts % (Manual) Lymphocytes % (Manual) Seg Neutrophils # Man Lymphocytes # (Manual) VBG pH Sodium Potassium Carbon Dioxide BUN Creatinine Glucose POC Glucose 435 H 253 H Hemoglobin A1c Calcium Alkaline Phosphatase Albumin Urine WBC (Auto) Assessment and Plan This is a 78 YO F with frequent falls. Multiple etiologies. Recommend: MRI Brain Pt with signs of neuropathy, will check labs here but would benefit from [facility] outpatient PT/OT Continue care for all medical issues as you are doing
--- NOTE | 2018-12-30 20:09 | Magnetic Resonance Report ---
MRI BRAIN WITHOUT CONTRAST INDICATION / CLINICAL INFORMATION: MAIN: Falls, confusion. TECHNIQUE: Multiplanar, multisequence MR images of the brain were obtained. COMPARISON: None available. FINDINGS: BRAIN / INTRACRANIAL CONTENTS: The motion degrades the image quality despite using a fast acquisition sequences. However, there are a few scattered small hyperintense foci involving the cerebral and baldev marlene white matter on the FLAIR sequences. The diffusion imaging reveals no evidence of acute infarcti on. There is mild cerebral atrophy commensurate with age. The ventricular system is correspondingly appro priate in size and configuration. CRANIOCERVICAL JUNCTION: No significant abnormality. VASCULAR FLOW-VOIDS: No significant abnormality. ORBITS: No significant abnormality of visualized orbits. SINUSES / MASTOIDS: There is complete opacification of the left sphenoid and near complete opacificat ion of the left maxillary sinuses. There is scattered mucosal thickening within the ethmoid air cells . ADDITIONAL FINDINGS: None. IMPRESSION: 1. There is mild microvascular angiopathy without evidence of acute infarction. 2. There is sinus inflammatory disease as described. Signer Name: Lino Haile MD Signed: 12/30/2018 8:05 PM Workstation Name: [id number]
[2018-12-31 05:04] LABS: Hematocrit 27.9 % (30.3-42.9); Hemoglobin 9.2 gm/dl (10.1-14.3); Mean Corpuscular HGB Conc 33 % (30-34); Mean Corpuscular Volume 90 fl (79-97); Platelet Count 447 K/mm3 (140-440); Red Cell Distribution Width 12.8 % (13.2-15.2)
[2018-12-31 05:23] LABS: Calcium 9.8 mg/dL (8.4-10.2)
[2018-12-31 06:05] LABS: Basophils % (Manual) 0 % (0.0-1.8); Eosinophils % (Manual) 0 % (0.0-4.3); Total Cells Counted 100
[2018-12-31 06:06] LABS: Platelet Estimate Consistent w Auto; RBC Morphology Normal
[2018-12-31] MEDS: INSULIN GLARGINE 100 UNITS/ML SUB-Q SCH (09:00)
[2018-12-31] MEDS: ACETAMINOPHEN 325 MG TAB PO PRN (10:40)
[2018-12-31] MEDS: ENOXAPARIN 30 MG/0.3 ML INJ SUB-Q SCH (10:41)
[2018-12-31] MEDS: DOCUSATE SODIUM 100 MG CAP PO SCH ×3 (10:47→22:32)
[2018-12-31] MEDS: cefTRIAXone/NS 1 GM/50 ML 1 GM/50 ML BAG IV SCH (10:52)
[2018-12-31] MEDS: INSULIN LISPRO 100 UNIT/ML SUB-Q SCH ×7 (10:52→22:53)
[2018-12-31] MEDS ORDERED: oxyCODONE /ACETAMINOPHEN 5-325MG TAB PO PRN (13:35)
[2018-12-31] MEDS: ONDANSETRON 4 MG/2 ML INJ IV PRN (14:01)
[2018-12-31] MEDS: SODIUM CHLORIDE 0.9% 1000 ML 1,000 ML IV SCH (15:23)
[2018-12-31] MEDS: HYDROmorphone 1 MG/1 ML INJ IV PRN ×2 (16:36→20:01)
[2019-01-01] MEDS: INSULIN LISPRO 100 UNIT/ML SUB-Q SCH ×6 (02:47→22:04)
[2019-01-01] MEDS: HYDROmorphone 1 MG/1 ML INJ IV PRN (02:50)
[2019-01-01] MEDS: SODIUM CHLORIDE 0.9% 1000 ML 1,000 ML IV SCH ×2 (05:25→22:42)
--- NOTE | 2019-01-01 07:40 | Progress Note ---
Assessment and Plan 68-year-old female with history of hypertension, diabetes, CKD, and kidney stones since [place] ED with complaints of lower back pain after falling earlier today. Urinary tract infection -UA positive for UTI -urine wbc >182 -Urine culture pending -on IV Abx DM -With hyperglycemia -Blood glucose on admission 527 -Urine and blood negative for ketones -POC BG monitoring -Scheduled Lantus and SSI coverage prn -HgbA1C High-in 13's Insulin dose adjusted ASHA -Cr on admission 1.6 -??CKD -Hydrate with IVF -Avoid nephrotoxic agents -Renal dose all meds Hyperkalemia -on admission 5.3, -Receiving IVF -Continue to monitor electrolytes Recent Fall -XR Spine lumbosacral did not show any fracture or other acute abnormality, but did show moderate degenerative changes. -Pt fell once day and once 7 days ago -PT/OT consult pending -Initiate fall precautions -Continue Supportive Care May need rehab and SNF HTN -Monitor BP -Resume home hypertensive meds when medication reconciliation has been updated -IV hydralazine when necessary DVT PPX -Lovenox Advance Directives: No VTE prophylaxis?: Chemical Plan of care discussed with patient/family: Yes Subjective Date of service: 12/31/18 Principal diagnosis: UTI,Frequent falls Interval history: 68-year-old female with history of hypertension, diabetes, CKD, and kidney stones since [place] ED with complaints of lower back pain after falling earlier today. Pt daughters are present at bedside and have assisted with providing history. Patient states that she slipped off bed and fell onto the floor while attempting to put on her slippers earlier today and was unable to get back up. Patient states that this is her second fall within the past week. Patient mentions that she fell on or around December 19 while at home attempted to stand up her knees just gave out. She denies loss of consciousness, head injury/trauma, or headache. However, she is complaining of lower back pain related to her recent fall. Additionally she complains of elevated blood sugar despite being compliant with anti-glycemic medication. She acknowledges decreased appetite and states that she feels nauseated at times. She goes to [facility] for all her primary medical care. Feels better, Objective - Constitutional Vitals: Vital Signs - 12hr 12/31/18 01/01/19 19:52 03:30 Temperature 97.8 F 98.9 F Pulse Rate 94 H 95 H Respiratory 18 20 Rate Blood Pressure 164/62 144/61 O2 Sat by Pulse 99 97 Oximetry General appearance: Present: no acute distress, well-nourished - EENT Eyes: PERRL, EOM intact ENT: hearing intact, clear oral mucosa Ears: bilateral: normal - Neck Neck: supple, normal ROM - Respiratory Respiratory effort: normal Respiratory: bilateral: CTA - Breasts Breasts: normal - Cardiovascular Rhythm: regular Heart Sounds: Present: S1 & S2. Absent: gallop, rub Extremities: pulses intact, No edema, normal color, Full ROM - Gastrointestinal General gastrointestinal: Present: soft, non-tender, non-distended, normal bowel sounds - Genitourinary Female genitourinary: normal - Integumentary Integumentary: clear, warm, dry - Musculoskeletal Musculoskeletal: 1, strength equal bilaterally - Neurologic Neurologic: moves all extremities - Psychiatric Psychiatric: memory intact, appropriate mood/affect, intact judgment & insight - Labs CBC & Chem 7: 12/31/18 04:31 12/31/18 04:31 Labs: Abnormal lab results 12/31/18 12/31/18 12/31/18 Range/Units 10:46 14:51 17:44 POC Glucose 291 H 287 H 274 H (70-105) 12/31/18 01/01/19 01/01/19 Range/Units 22:14 02:31 03:10 POC Glucose 233 H 156 H 160 H (70-105) 01/01/19 Range/Units 05:15 POC Glucose 180 H (70-105)
--- NOTE | 2019-01-01 07:42 | Progress Note ---
Assessment and Plan Assessment and plan: 68-year-old female with history of hypertension, diabetes, CKD, and kidney stones since [facility] with complaints of lower back pain after falling earlier today. --Sepsis secondary to Urinary tract infection: Fever, leukocytosis, UTI, organ dysfunction Continue empiric antibiotics Follow Urine cultures supportive care --Hyponatremia; Continue gentle hydration, monitor electrolytes Oral NaCl replacement if needed --ASHA; vasomotor nephropathy IV normal saline, Avoid nephrotoxic agents Closely monitor renal function --Hyperkalemia; resolved --DM2 Accu-Chek sliding scale coverage ADA diet, Lantus, HgbA1C 13.0, Adjust Insulin dose as needed --History of recurrent falls ; Fall precautions XR Spine lumbosacral no acute abnormality, PT,OT, rehabilitation as needed --Rehab and SNF placement when stable --HTN; moderate control Continue current antihypertensives and when necessary hydralazine --DVT PROPHYLAXIS Lovenox Placement when medically stable History Interval history: Patient seen and examined medical records reviewed Patient feels slightly better complains of weakness No new episodes of fall Vital signs noted Hospitalist Physical - Constitutional Vitals: Temp Pulse Resp BP Pulse Ox 98.9 F 95 H 20 144/61 97 01/01/19 03:30 01/01/19 03:30 01/01/19 03:30 01/01/19 03:30 01/01/19 03:30 General appearance: Present: no acute distress, well-nourished - EENT Eyes: Present: PERRL, EOM intact - Neck Neck: Present: supple, normal ROM - Respiratory Respiratory effort: normal Respiratory: bilateral: diminished, negative: rales, rhonchi, wheezing - Cardiovascular Rhythm: regular Heart Sounds: Present: S1 & S2 - Extremities Extremities: no ischemia, No edema - Abdominal General gastrointestinal: soft, non-tender, non-distended, normal bowel sounds - Integumentary Integumentary: Present: clear, warm - Psychiatric Psychiatric: appropriate mood/affect, cooperative - Neurologic Neurologic: CNII-XII intact, moves all extremities Results - Labs CBC & Chem 7: 01/03/19 05:40 01/03/19 05:40 Labs: Laboratory Last Values WBC 20.6 K/mm3 (4.5-11.0) H 12/31/18 04:31 RBC 3.10 M/mm3 (3.65-5.03) L 12/31/18 04:31 Hgb 9.2 gm/dl (10.1-14.3) L 12/31/18 04:31 Hct 27.9 % (30.3-42.9) L 12/31/18 04:31 MCV 90 fl (79-97) 12/31/18 04:31 MCH 30 pg (28-32) 12/31/18 04:31 MCHC 33 % (30-34) 12/31/18 04:31 RDW 12.8 % (13.2-15.2) L 12/31/18 04:31 Plt Count 447 K/mm3 (140-440) H 12/31/18 04:31 Add Manual Diff Complete 12/31/18 04:31 Total Counted 100 12/31/18 04:31 Seg Neuts % (Manual) 91.0 % (40.0-70.0) H 12/31/18 04:31 Band Neutrophils % 0 % 12/31/18 04:31 Lymphocytes % (Manual) 4.0 % (13.4-35.0) L 12/31/18 04:31 Reactive Lymphs % (Man) 0 % 12/31/18 04:31 Monocytes % (Manual) 5.0 % (0.0-7.3) 12/31/18 04:31 Eosinophils % (Manual) 0 % (0.0-4.3) 12/31/18 04:31 Basophils % (Manual) 0 % (0.0-1.8) 12/31/18 04:31 Metamyelocytes % 0 % 12/31/18 04:31 Myelocytes % 0 % 12/31/18 04:31 Promyelocytes % 0 % 12/31/18 04:31 Blast Cells % 0 % 12/31/18 04:31 Nucleated RBC % Not Reportable 12/31/18 04:31 Seg Neutrophils # Man 18.7 K/mm3 (1.8-7.7) H 12/31/18 04:31 Band Neutrophils # 0.0 K/mm3 12/31/18 04:31 Lymphocytes # (Manual) 0.8 K/mm3 (1.2-5.4) L 12/31/18 04:31 Abs React Lymphs (Man) 0.0 K/mm3 12/31/18 04:31 Monocytes # (Manual) 1.0 K/mm3 (0.0-0.8) H 12/31/18 04:31 Eosinophils # (Manual) 0.0 K/mm3 (0.0-0.4) 12/31/18 04:31 Basophils # (Manual) 0.0 K/mm3 (0.0-0.1) 12/31/18 04:31 Metamyelocytes # 0.0 K/mm3 12/31/18 04:31 Myelocytes # 0.0 K/mm3 12/31/18 04:31 Promyelocytes # 0.0 K/mm3 12/31/18 04:31 Blast Cells # 0.0 K/mm3 12/31/18 04:31 WBC Morphology Not Reportable 12/31/18 04:31 Hypersegmented Neuts Not Reportable 12/31/18 04:31 Hyposegmented Neuts Not Reportable 12/31/18 04:31 Hypogranular Neuts Not Reportable 12/31/18 04:31 Smudge Cells Not Reportable 12/31/18 04:31 Toxic Granulation Not Reportable 12/31/18 04:31 Toxic Vacuolation Not Reportable 12/31/18 04:31 Dohle Bodies Not Reportable 12/31/18 04:31 Pelger-Huet Anomaly Not Reportable 12/31/18 04:31 Ema Rods Not Reportable 12/31/18 04:31 Platelet Estimate Consistent w auto 12/31/18 04:31 Clumped Platelets Not Reportable 12/31/18 04:31 Plt Clumps, EDTA Not Reportable 12/31/18 04:31 Large Platelets Not Reportable 12/31/18 04:31 Giant Platelets Not Reportable 12/31/18 04:31 Platelet Satelliting Not Reportable 12/31/18 04:31 Plt Morphology Comment Not Reportable 12/31/18 04:31 RBC Morphology Normal 12/31/18 04:31 Dimorphic RBCs Not Reportable 12/31/18 04:31 Polychromasia Not Reportable 12/31/18 04:31 Hypochromasia Not Reportable 12/31/18 04:31 Poikilocytosis Not Reportable 12/31/18 04:31 Anisocytosis Not Reportable 12/31/18 04:31 Microcytosis Not Reportable 12/31/18 04:31 Macrocytosis Not Reportable 12/31/18 04:31 Spherocytes Not Reportable 12/31/18 04:31 Pappenheimer Bodies Not Reportable 12/31/18 04:31 Sickle Cells Not Reportable 12/31/18 04:31 Target Cells Not Reportable 12/31/18 04:31 Tear Drop Cells Not Reportable 12/31/18 04:31 Ovalocytes Not Reportable 12/31/18 04:31 Helmet Cells Not Reportable 12/31/18 04:31 Yancey-[place] Bodies Not Reportable 12/31/18 04:31 [place] Rings Not Reportable 12/31/18 04:31 Erasmo Cells Not Reportable 12/31/18 04:31 Bite Cells Not Reportable 12/31/18 04:31 Crenated Cell Not Reportable 12/31/18 04:31 Elliptocytes Not Reportable 12/31/18 04:31 Acanthocytes (Spur) Not Reportable 12/31/18 04:31 Rouleaux Not Reportable 12/31/18 04:31 Hemoglobin C Crystals Not Reportable 12/31/18 04:31 Schistocytes Not Reportable 12/31/18 04:31 Malaria parasites Not Reportable 12/31/18 04:31 Michael Bodies Not Reportable 12/31/18 04:31 Hem Pathologist Commnt No 12/31/18 04:31 VBG pH 7.301 (7.320-7.420) L 12/29/18 19:01 Sodium 129 mmol/L (137-145) L 12/31/18 04:31 Potassium 4.0 mmol/L (3.6-5.0) 12/31/18 04:31 Chloride 101.1 mmol/L (98-107) 12/31/18 04:31 Carbon Dioxide 13 mmol/L (22-30) L 12/31/18 04:31 Anion Gap 19 mmol/L 12/31/18 04:31 BUN 40 mg/dL (7-17) H 12/31/18 04:31 Creatinine 2.0 mg/dL (0.7-1.2) H 12/31/18 04:31 Estimated GFR 24 ml/min 12/31/18 04:31 BUN/Creatinine Ratio 20 % 12/31/18 04:31 Glucose 154 mg/dL (65-100) H 12/31/18 04:31 POC Glucose 180 (70-105) H 01/01/19 05:15 Hemoglobin A1c 13.0 % (4-6) H 12/30/18 03:34 Ketones Quantitative Negative (Negative) 12/29/18 19:01 Calcium 9.8 mg/dL (8.4-10.2) 12/31/18 04:31 Total Bilirubin 0.30 mg/dL (0.1-1.2) 12/29/18 19:01 AST 17 units/L (5-40) 12/29/18 19:01 ALT 10 units/L (7-56) 12/29/18 19:01 Alkaline Phosphatase 193 units/L (35-129) H 12/29/18 19:01 Total Protein 7.7 g/dL (6.3-8.2) 12/29/18 19:01 Albumin 3.5 g/dL (3.9-5) L 12/29/18 19:01 Albumin/Globulin Ratio 0.8 % 12/29/18 19:01 Vitamin B12 842.1 pg/mL (211-911) 12/30/18 19:12 TSH 0.556 mlU/mL (0.270-4.200) 12/30/18 19:12 Urine Color Yellow (Yellow) 12/29/18 Unknown Urine Turbidity Cloudy (Clear) 12/29/18 Unknown Urine pH 5.0 (5.0-7.0) 12/29/18 Unknown Ur Specific [place] 1.011 (1.003-1.030) 12/29/18 Unknown Urine Protein 100 mg/dl mg/dL (Negative) 12/29/18 Unknown Urine Glucose (UA) >=500 mg/dL (Negative) 12/29/18 Unknown Urine Ketones Neg mg/dL (Negative) 12/29/18 Unknown Urine Blood Lg (Negative) 12/29/18 Unknown Urine Nitrite Neg (Negative) 12/29/18 Unknown Urine Bilirubin Neg (Negative) 12/29/18 Unknown Urine Urobilinogen < 2.0 mg/dL (<2.0) 12/29/18 Unknown Ur Leukocyte Esterase Lg (Negative) 12/29/18 Unknown Urine WBC (Auto) > 182.0 /HPF (0.0-6.0) H 12/29/18 Unknown Urine RBC (Auto) 27.0 /HPF (0.0-6.0) 12/29/18 Unknown U Epithel Cells (Auto) 1.0 /HPF (0-13.0) 12/29/18 Unknown Urine WBC Clumps 2+ /HPF 12/29/18 Unknown Urine Mucus Few /HPF 12/29/18 Unknown Active Medications - Current Medications Current Medications: Generic Name Dose Route Start Last Admin Trade Name Freq PRN Reason Stop Dose Admin Acetaminophen 650 mg 12/30/18 00:48 12/31/18 10:40 Tylenol PO 650 mg Q4H PRN Administration Pain MILD(1-3)/Fever >100.5/NEAL Dextrose 0 ml 12/30/18 00:48 D50w (25gm) Syringe IV Q30MIN PRN Hypoglycemia Protocol Docusate Sodium 100 mg 12/30/18 10:00 12/31/18 22:32 Colace PO 100 mg BID ALF Administration Enoxaparin Sodium 30 mg 12/30/18 10:00 12/31/18 10:41 Enoxaparin SUB-Q 30 mg QDAY ALF Administration Hydralazine HCl 10 mg 12/30/18 00:54 12/30/18 10:30 Apresoline IV 10 mg Q4H PRN Administration Blood Pressure Hydromorphone HCl 0.5 mg 12/31/18 15:57 01/01/19 02:50 Dilaudid IV 0.5 mg Q3H PRN Administration Pain , Severe (7-10) Sodium Chloride 1,000 mls @ 75 mls/hr 12/30/18 01:00 01/01/19 05:25 Nacl 0.9% 1000 Ml IV 75 mls/hr DIRECT ALF Administration Ceftriaxone Sodium 1 gm in 50 mls @ 100 mls/hr 12/30/18 10:00 12/31/18 10:52 Rocephin/Ns 1 Gm/50 Ml IV 01/02/19 10:59 100 mls/hr Q24HR ALF Administration Protocol Insulin Glargine 30 units 12/31/18 18:36 Lantus SUB-Q QAMDIAB ALF Insulin Human Lispro 0 unit 12/30/18 02:00 01/01/19 05:55 Humalog SUB-Q 2 unit Q4HR ALF Administration Protocol Ondansetron HCl 4 mg 12/30/18 00:48 12/31/18 14:01 Zofran IV 4 mg Q8H PRN Administration Nausea And Vomiting Oxycodone/Acetaminophen 1 tab 12/31/18 13:35 12/31/18 14:00 Percocet 5/325 PO 1 tab Q6H PRN Administration Pain, Moderate (4-6) Sodium Chloride 10 ml 12/30/18 10:00 12/31/18 22:25 Sodium Chloride Flush Syringe 10 Ml IV 10 ml BID ALF Administration Sodium Chloride 10 ml 12/30/18 00:48 Sodium Chloride Flush Syringe 10 Ml IV PRN PRN LINE FLUSH
[2019-01-01] MEDS: ONDANSETRON 4 MG/2 ML INJ IV PRN (08:34)
[2019-01-01] MEDS: INSULIN GLARGINE 100 UNITS/ML SUB-Q SCH (08:55)
[2019-01-01 09:11] LABS: Basophils # (Auto) 0.1 K/mm3 (0.0-0.1); Basophils % (Auto) 0.4 % (0.0-1.8); Eosinophils % (Auto) 0.2 % (0.0-4.3); Hematocrit 28.7 % (30.3-42.9); Hemoglobin 9.6 gm/dl (10.1-14.3); Lymphocytes # (Auto) 0.7 K/mm3 (1.2-5.4); Lymphocytes % (Auto) 4.9 % (13.4-35.0); Mean Corpuscular HGB Conc 33 % (30-34); Mean Corpuscular Volume 89 fl (79-97); Monocytes # (Auto) 0.9 K/mm3 (0.0-0.8); Monocytes % (Auto) 6.5 % (0.0-7.3); Platelet Count 424 K/mm3 (140-440); Red Blood Count 3.22 M/mm3 (3.65-5.03); Red Cell Distribution Width 12.7 % (13.2-15.2)
[2019-01-01 09:26] LABS: Calcium 9.3 mg/dL (8.4-10.2)
[2019-01-01] MEDS: cefTRIAXone/NS 1 GM/50 ML 1 GM/50 ML BAG IV SCH (10:06)
[2019-01-01] MEDS: ENOXAPARIN 30 MG/0.3 ML INJ SUB-Q SCH (10:08)
[2019-01-01] MEDS: DOCUSATE SODIUM 100 MG CAP PO SCH ×2 (10:11→21:21)
[2019-01-02] MEDS: INSULIN LISPRO 100 UNIT/ML SUB-Q SCH ×6 (02:29→22:45)
[2019-01-02 09:17] LABS: Calcium 9.7 mg/dL (8.4-10.2)
[2019-01-02] MEDS: cefTRIAXone/NS 1 GM/50 ML 1 GM/50 ML BAG IV SCH (10:20)
[2019-01-02] MEDS: INSULIN GLARGINE 100 UNITS/ML SUB-Q SCH (10:20)
[2019-01-02] MEDS: DOCUSATE SODIUM 100 MG CAP PO SCH ×2 (10:20→21:58)
[2019-01-02] MEDS: ENOXAPARIN 30 MG/0.3 ML INJ SUB-Q SCH (10:20)
[2019-01-02] MEDS: SODIUM CHLORIDE 1 GM TAB PO SCH ×2 (10:21→21:58)
--- NOTE | 2019-01-02 15:42 | Progress Note ---
Assessment and Plan Assessment and plan: 68-year-old female with history of hypertension, diabetes, CKD, and kidney stones with history of of lower back pain and recurrent falls --Sepsis secondary to Urinary tract infection: Present on admission Fever, leukocytosis, tachycardia, UTI, organ failure Received empiric antibiotics for 4 days Urine cultures negative to date Symptoms resolved --Hyponatremia; significantly improved Continue gentle hydration, monitor electrolytes --ASHA; vasomotor nephropathy IV normal saline, Avoid nephrotoxic agents Closely monitor renal function --Hyperkalemia; resolved --DM2 Accu-Chek sliding scale coverage ADA diet, Lantus, HgbA1C 13.0, Adjust Insulin dose as needed --History of recurrent falls ;Fall precautions XR Spine lumbosacral no acute abnormality, PT,OT, rehabilitation as needed --Rehab and SNF placement when stable --HTN; moderate control Continue current antihypertensives and when necessary hydralazine --DVT PROPHYLAXIS Lovenox Placement when medically stable Plan of care reviewed with the patient and her nurse History Interval history: Patient seen and examined medical records reviewed Patient feels slightly better, no new complaints Vital signs reviewed Hospitalist Physical - Constitutional Vitals: Temp Pulse Resp BP Pulse Ox 98.7 F 79 20 151/58 98 01/02/19 13:30 01/02/19 13:30 01/02/19 13:30 01/02/19 13:30 01/02/19 13:30 General appearance: Present: no acute distress, well-nourished - EENT Eyes: Present: PERRL, EOM intact - Neck Neck: Present: supple, normal ROM - Respiratory Respiratory effort: normal Respiratory: bilateral: diminished, negative: rales, rhonchi, wheezing - Cardiovascular Rhythm: regular Heart Sounds: Present: S1 & S2 - Extremities Extremities: no ischemia, No edema - Abdominal General gastrointestinal: soft, non-tender, non-distended, normal bowel sounds - Integumentary Integumentary: Present: clear, warm - Psychiatric Psychiatric: appropriate mood/affect, cooperative - Neurologic Neurologic: moves all extremities Results - Labs CBC & Chem 7: 01/03/19 05:40 01/03/19 05:40 Labs: Laboratory Last Values WBC 14.2 K/mm3 (4.5-11.0) H 01/01/19 08:40 RBC 3.22 M/mm3 (3.65-5.03) L 01/01/19 08:40 Hgb 9.6 gm/dl (10.1-14.3) L 01/01/19 08:40 Hct 28.7 % (30.3-42.9) L 01/01/19 08:40 MCV 89 fl (79-97) 01/01/19 08:40 MCH 30 pg (28-32) 01/01/19 08:40 MCHC 33 % (30-34) 01/01/19 08:40 RDW 12.7 % (13.2-15.2) L 01/01/19 08:40 Plt Count 424 K/mm3 (140-440) 01/01/19 08:40 Lymph % (Auto) 4.9 % (13.4-35.0) L 01/01/19 08:40 [place] % (Auto) 6.5 % (0.0-7.3) 01/01/19 08:40 Eos % (Auto) 0.2 % (0.0-4.3) 01/01/19 08:40 Baso % (Auto) 0.4 % (0.0-1.8) 01/01/19 08:40 Lymph # 0.7 K/mm3 (1.2-5.4) L 01/01/19 08:40 [place] # 0.9 K/mm3 (0.0-0.8) H 01/01/19 08:40 Eos # 0.0 K/mm3 (0.0-0.4) 01/01/19 08:40 Baso # 0.1 K/mm3 (0.0-0.1) 01/01/19 08:40 Add Manual Diff Complete 12/31/18 04:31 Total Counted 100 12/31/18 04:31 Seg Neutrophils % 88.0 % (40.0-70.0) H 01/01/19 08:40 Seg Neuts % (Manual) 91.0 % (40.0-70.0) H 12/31/18 04:31 Band Neutrophils % 0 % 12/31/18 04:31 Lymphocytes % (Manual) 4.0 % (13.4-35.0) L 12/31/18 04:31 Reactive Lymphs % (Man) 0 % 12/31/18 04:31 Monocytes % (Manual) 5.0 % (0.0-7.3) 12/31/18 04:31 Eosinophils % (Manual) 0 % (0.0-4.3) 12/31/18 04:31 Basophils % (Manual) 0 % (0.0-1.8) 12/31/18 04:31 Metamyelocytes % 0 % 12/31/18 04:31 Myelocytes % 0 % 12/31/18 04:31 Promyelocytes % 0 % 12/31/18 04:31 Blast Cells % 0 % 12/31/18 04:31 Nucleated RBC % Not Reportable 12/31/18 04:31 Seg Neutrophils # 12.5 K/mm3 (1.8-7.7) H 01/01/19 08:40 Seg Neutrophils # Man 18.7 K/mm3 (1.8-7.7) H 12/31/18 04:31 Band Neutrophils # 0.0 K/mm3 12/31/18 04:31 Lymphocytes # (Manual) 0.8 K/mm3 (1.2-5.4) L 12/31/18 04:31 Abs React Lymphs (Man) 0.0 K/mm3 12/31/18 04:31 Monocytes # (Manual) 1.0 K/mm3 (0.0-0.8) H 12/31/18 04:31 Eosinophils # (Manual) 0.0 K/mm3 (0.0-0.4) 12/31/18 04:31 Basophils # (Manual) 0.0 K/mm3 (0.0-0.1) 12/31/18 04:31 Metamyelocytes # 0.0 K/mm3 12/31/18 04:31 Myelocytes # 0.0 K/mm3 12/31/18 04:31 Promyelocytes # 0.0 K/mm3 12/31/18 04:31 Blast Cells # 0.0 K/mm3 12/31/18 04:31 WBC Morphology Not Reportable 12/31/18 04:31 Hypersegmented Neuts Not Reportable 12/31/18 04:31 Hyposegmented Neuts Not Reportable 12/31/18 04:31 Hypogranular Neuts Not Reportable 12/31/18 04:31 Smudge Cells Not Reportable 12/31/18 04:31 Toxic Granulation Not Reportable 12/31/18 04:31 Toxic Vacuolation Not Reportable 12/31/18 04:31 Dohle Bodies Not Reportable 12/31/18 04:31 Pelger-Huet Anomaly Not Reportable 12/31/18 04:31 Ema Rods Not Reportable 12/31/18 04:31 Platelet Estimate Consistent w auto 12/31/18 04:31 Clumped Platelets Not Reportable 12/31/18 04:31 Plt Clumps, EDTA Not Reportable 12/31/18 04:31 Large Platelets Not Reportable 12/31/18 04:31 Giant Platelets Not Reportable 12/31/18 04:31 Platelet Satelliting Not Reportable 12/31/18 04:31 Plt Morphology Comment Not Reportable 12/31/18 04:31 RBC Morphology Normal 12/31/18 04:31 Dimorphic RBCs Not Reportable 12/31/18 04:31 Polychromasia Not Reportable 12/31/18 04:31 Hypochromasia Not Reportable 12/31/18 04:31 Poikilocytosis Not Reportable 12/31/18 04:31 Anisocytosis Not Reportable 12/31/18 04:31 Microcytosis Not Reportable 12/31/18 04:31 Macrocytosis Not Reportable 12/31/18 04:31 Spherocytes Not Reportable 12/31/18 04:31 Pappenheimer Bodies Not Reportable 12/31/18 04:31 Sickle Cells Not Reportable 12/31/18 04:31 Target Cells Not Reportable 12/31/18 04:31 Tear Drop Cells Not Reportable 12/31/18 04:31 Ovalocytes Not Reportable 12/31/18 04:31 Helmet Cells Not Reportable 12/31/18 04:31 Yancey-[place] Bodies Not Reportable 12/31/18 04:31 [place] Rings Not Reportable 12/31/18 04:31 [place] Cells Not Reportable 12/31/18 04:31 Bite Cells Not Reportable 12/31/18 04:31 Crenated Cell Not Reportable 12/31/18 04:31 Elliptocytes Not Reportable 12/31/18 04:31 Acanthocytes (Spur) Not Reportable 12/31/18 04:31 Rouleaux Not Reportable 12/31/18 04:31 Hemoglobin C Crystals Not Reportable 12/31/18 04:31 Schistocytes Not Reportable 12/31/18 04:31 Malaria parasites Not Reportable 12/31/18 04:31 Michael Bodies Not Reportable 12/31/18 04:31 Hem Pathologist Commnt No 12/31/18 04:31 VBG pH 7.301 (7.320-7.420) L 12/29/18 19:01 Sodium 132 mmol/L (137-145) L D 01/02/19 08:34 Potassium 4.2 mmol/L (3.6-5.0) 01/02/19 08:34 Chloride 104.9 mmol/L (98-107) 01/02/19 08:34 Carbon Dioxide 13 mmol/L (22-30) L 01/02/19 08:34 Anion Gap 18 mmol/L 01/02/19 08:34 BUN 43 mg/dL (7-17) H 01/02/19 08:34 Creatinine 2.0 mg/dL (0.7-1.2) H 01/02/19 08:34 Estimated GFR 24 ml/min 01/02/19 08:34 BUN/Creatinine Ratio 22 % 01/02/19 08:34 Glucose 125 mg/dL (65-100) H 01/02/19 08:34 POC Glucose 127 (70-105) H 01/02/19 13:50 Hemoglobin A1c 13.0 % (4-6) H 12/30/18 03:34 Ketones Quantitative Negative (Negative) 12/29/18 19:01 Calcium 9.7 mg/dL (8.4-10.2) 01/02/19 08:34 Total Bilirubin 0.30 mg/dL (0.1-1.2) 12/29/18 19:01 AST 17 units/L (5-40) 12/29/18 19:01 ALT 10 units/L (7-56) 12/29/18 19:01 Alkaline Phosphatase 193 units/L (35-129) H 12/29/18 19:01 Total Protein 7.7 g/dL (6.3-8.2) 12/29/18 19:01 Albumin 3.5 g/dL (3.9-5) L 12/29/18 19:01 Albumin/Globulin Ratio 0.8 % 12/29/18 19:01 Vitamin B12 842.1 pg/mL (211-911) 12/30/18 19:12 TSH 0.556 mlU/mL (0.270-4.200) 12/30/18 19:12 Urine Color Yellow (Yellow) 12/29/18 Unknown Urine Turbidity Cloudy (Clear) 12/29/18 Unknown Urine pH 5.0 (5.0-7.0) 12/29/18 Unknown Ur Specific [place] 1.011 (1.003-1.030) 12/29/18 Unknown Urine Protein 100 mg/dl mg/dL (Negative) 12/29/18 Unknown Urine Glucose (UA) >=500 mg/dL (Negative) 12/29/18 Unknown Urine Ketones Neg mg/dL (Negative) 12/29/18 Unknown Urine Blood Lg (Negative) 12/29/18 Unknown Urine Nitrite Neg (Negative) 12/29/18 Unknown Urine Bilirubin Neg (Negative) 12/29/18 Unknown Urine Urobilinogen < 2.0 mg/dL (<2.0) 12/29/18 Unknown Ur Leukocyte Esterase Lg (Negative) 12/29/18 Unknown Urine WBC (Auto) > 182.0 /HPF (0.0-6.0) H 12/29/18 Unknown Urine RBC (Auto) 27.0 /HPF (0.0-6.0) 12/29/18 Unknown U Epithel Cells (Auto) 1.0 /HPF (0-13.0) 12/29/18 Unknown Urine WBC Clumps 2+ /HPF 12/29/18 Unknown Urine Mucus Few /HPF 12/29/18 Unknown Active Medications - Current Medications Current Medications: Generic Name Dose Route Start Last Admin Trade Name Freq PRN Reason Stop Dose Admin Acetaminophen 650 mg 12/30/18 00:48 12/31/18 10:40 Tylenol PO 650 mg Q4H PRN Administration Pain MILD(1-3)/Fever >100.5/NEAL Dextrose 0 ml 12/30/18 00:48 D50w (25gm) Syringe IV Q30MIN PRN Hypoglycemia Protocol Docusate Sodium 100 mg 12/30/18 10:00 01/02/19 10:20 Colace PO 100 mg BID ALF Administration Enoxaparin Sodium 30 mg 12/30/18 10:00 01/02/19 10:20 Enoxaparin SUB-Q 30 mg QDAY ALF Administration Hydralazine HCl 10 mg 12/30/18 00:54 12/30/18 10:30 Apresoline IV 10 mg Q4H PRN Administration Blood Pressure Hydromorphone HCl 0.5 mg 12/31/18 15:57 01/01/19 02:50 Dilaudid IV 0.5 mg Q3H PRN Administration Pain , Severe (7-10) Sodium Chloride 1,000 mls @ 75 mls/hr 12/30/18 01:00 01/01/19 22:42 Nacl 0.9% 1000 Ml IV 75 mls/hr DIRECT ALF Administration Insulin Glargine 30 units 12/31/18 18:36 01/02/19 10:20 Lantus SUB-Q 30 units QAMDIAB ALF Administration Insulin Human Lispro 0 unit 12/30/18 02:00 01/02/19 13:44 Humalog SUB-Q Not Given Q4HR [facility] Protocol Ondansetron HCl 4 mg 12/30/18 00:48 01/01/19 08:34 Zofran IV 4 mg Q8H PRN Administration Nausea And Vomiting Oxycodone/Acetaminophen 1 tab 12/31/18 13:35 12/31/18 14:00 Percocet 5/325 PO 1 tab Q6H PRN Administration Pain, Moderate (4-6) Sodium Chloride 10 ml 12/30/18 10:00 01/02/19 10:20 Sodium Chloride Flush Syringe 10 Ml IV 10 ml BID ALF Administration Sodium Chloride 10 ml 12/30/18 00:48 Sodium Chloride Flush Syringe 10 Ml IV PRN PRN LINE FLUSH Sodium Chloride 1 gm 01/02/19 10:00 01/02/19 10:21 Sodium Chloride PO 1 gm BID ALF Administration
[2019-01-03] MEDS: SODIUM CHLORIDE 0.9% 1000 ML 1,000 ML IV SCH ×2 (01:28→13:37)
[2019-01-03] MEDS: INSULIN LISPRO 100 UNIT/ML SUB-Q SCH ×6 (02:00→22:05)
[2019-01-03 06:05] LABS: Basophils # (Auto) 0.1 K/mm3 (0.0-0.1); Basophils % (Auto) 0.8 % (0.0-1.8); Eosinophils # (Auto) 0.2 K/mm3 (0.0-0.4); Hematocrit 25.9 % (30.3-42.9); Hemoglobin 8.8 gm/dl (10.1-14.3); Lymphocytes # (Auto) 1.1 K/mm3 (1.2-5.4); Lymphocytes % (Auto) 10.4 % (13.4-35.0); Mean Corpuscular HGB Conc 34 % (30-34); Mean Corpuscular Volume 90 fl (79-97); Monocytes # (Auto) 1.2 K/mm3 (0.0-0.8); Monocytes % (Auto) 11.1 % (0.0-7.3); Platelet Count 430 K/mm3 (140-440); Red Blood Count 2.88 M/mm3 (3.65-5.03); Red Cell Distribution Width 13.1 % (13.2-15.2)
[2019-01-03] MEDS: ENOXAPARIN 30 MG/0.3 ML INJ SUB-Q SCH (09:51)
[2019-01-03] MEDS: INSULIN GLARGINE 100 UNITS/ML SUB-Q SCH (09:51)
[2019-01-03] MEDS: SODIUM CHLORIDE 1 GM TAB PO SCH ×2 (09:51→22:05)
[2019-01-03] MEDS: DOCUSATE SODIUM 100 MG CAP PO SCH ×2 (09:51→22:05)
--- NOTE | 2019-01-03 10:06 | Progress Note ---
Assessment and Plan Assessment and plan: 68-year-old female with history of hypertension, diabetes, CKD, and kidney stones with history of of lower back pain and recurrent falls noted to have sepsis secondary to urinary tract infection , received 4 days of Rocephin, cultures negative to date MRI, lumbosacral spine x-ray, no acute changes, received physical therapy and occupational therapy, electrolyte imbalances corrected Acute kidney injury significantly improved, --Sepsis secondary to Urinary tract infection: Present on admission Received empiric antibiotics for 4 days Urine cultures negative to date Symptoms resolved --Hyponatremia; significantly improved Resolved, monitor electrolytes --ASHA; vasomotor nephropathy IV normal saline, Avoid nephrotoxic agents Closely monitor renal function --Hyperkalemia; resolved --DM2: Accu-Chek sliding scale coverage ADA diet, Lantus, HgbA1C 13.0, Adjust Insulin dose as needed --History of recurrent falls ; Fall precautions MRI mild microvascular angiopathy without infarction Sinus inflammatory disease[received 4 days of Rocephin] X-ray lumbosacral spines; Degenerative change, no acute abnormality PT,OT, rehabilitation as needed --Rehab and SNF placement when stable --HTN; moderate control Continue current antihypertensives and when necessary hydralazine --DVT PROPHYLAXIS Lovenox Placement when medically stable History Interval history: Patient seen and examined medical records reviewed Patient feels slightly better no new complaints Confused at times, No significant overnight events reported Vital signs stable Hospitalist Physical - Constitutional Vitals: Temp Pulse Resp BP Pulse Ox 97.8 F 81 18 153/65 97 01/03/19 02:00 01/03/19 02:00 01/03/19 02:00 01/03/19 02:00 01/03/19 02:00 General appearance: Present: no acute distress, well-nourished - EENT Eyes: Present: PERRL, EOM intact - Neck Neck: Present: supple, normal ROM - Respiratory Respiratory effort: normal Respiratory: bilateral: diminished, negative: rales, rhonchi, wheezing - Cardiovascular Rhythm: regular Heart Sounds: Present: S1 & S2 - Extremities Extremities: no ischemia, No edema - Abdominal General gastrointestinal: soft, non-tender, non-distended, normal bowel sounds - Integumentary Integumentary: Present: clear, warm - Psychiatric Psychiatric: appropriate mood/affect, other (confused at times) - Neurologic Neurologic: moves all extremities Results - Labs CBC & Chem 7: 01/03/19 05:40 01/03/19 05:40 Labs: Laboratory Last Values WBC 10.8 K/mm3 (4.5-11.0) 01/03/19 05:40 RBC 2.88 M/mm3 (3.65-5.03) L 01/03/19 05:40 Hgb 8.8 gm/dl (10.1-14.3) L 01/03/19 05:40 Hct 25.9 % (30.3-42.9) L 01/03/19 05:40 MCV 90 fl (79-97) 01/03/19 05:40 MCH 30 pg (28-32) 01/03/19 05:40 MCHC 34 % (30-34) 01/03/19 05:40 RDW 13.1 % (13.2-15.2) L 01/03/19 05:40 Plt Count 430 K/mm3 (140-440) 01/03/19 05:40 Lymph % (Auto) 10.4 % (13.4-35.0) L 01/03/19 05:40 [place] % (Auto) 11.1 % (0.0-7.3) H 01/03/19 05:40 Eos % (Auto) 2.0 % (0.0-4.3) 01/03/19 05:40 Baso % (Auto) 0.8 % (0.0-1.8) 01/03/19 05:40 Lymph # 1.1 K/mm3 (1.2-5.4) L 01/03/19 05:40 [place] # 1.2 K/mm3 (0.0-0.8) H 01/03/19 05:40 Eos # 0.2 K/mm3 (0.0-0.4) 01/03/19 05:40 Baso # 0.1 K/mm3 (0.0-0.1) 01/03/19 05:40 Add Manual Diff Complete 12/31/18 04:31 Total Counted 100 12/31/18 04:31 Seg Neutrophils % 75.7 % (40.0-70.0) H 01/03/19 05:40 Seg Neuts % (Manual) 91.0 % (40.0-70.0) H 12/31/18 04:31 Band Neutrophils % 0 % 12/31/18 04:31 Lymphocytes % (Manual) 4.0 % (13.4-35.0) L 12/31/18 04:31 Reactive Lymphs % (Man) 0 % 12/31/18 04:31 Monocytes % (Manual) 5.0 % (0.0-7.3) 12/31/18 04:31 Eosinophils % (Manual) 0 % (0.0-4.3) 12/31/18 04:31 Basophils % (Manual) 0 % (0.0-1.8) 12/31/18 04:31 Metamyelocytes % 0 % 12/31/18 04:31 Myelocytes % 0 % 12/31/18 04:31 Promyelocytes % 0 % 12/31/18 04:31 Blast Cells % 0 % 12/31/18 04:31 Nucleated RBC % Not Reportable 12/31/18 04:31 Seg Neutrophils # 8.2 K/mm3 (1.8-7.7) H 01/03/19 05:40 Seg Neutrophils # Man 18.7 K/mm3 (1.8-7.7) H 12/31/18 04:31 Band Neutrophils # 0.0 K/mm3 12/31/18 04:31 Lymphocytes # (Manual) 0.8 K/mm3 (1.2-5.4) L 12/31/18 04:31 Abs React Lymphs (Man) 0.0 K/mm3 12/31/18 04:31 Monocytes # (Manual) 1.0 K/mm3 (0.0-0.8) H 12/31/18 04:31 Eosinophils # (Manual) 0.0 K/mm3 (0.0-0.4) 12/31/18 04:31 Basophils # (Manual) 0.0 K/mm3 (0.0-0.1) 12/31/18 04:31 Metamyelocytes # 0.0 K/mm3 12/31/18 04:31 Myelocytes # 0.0 K/mm3 12/31/18 04:31 Promyelocytes # 0.0 K/mm3 12/31/18 04:31 Blast Cells # 0.0 K/mm3 12/31/18 04:31 WBC Morphology Not Reportable 12/31/18 04:31 Hypersegmented Neuts Not Reportable 12/31/18 04:31 Hyposegmented Neuts Not Reportable 12/31/18 04:31 Hypogranular Neuts Not Reportable 12/31/18 04:31 Smudge Cells Not Reportable 12/31/18 04:31 Toxic Granulation Not Reportable 12/31/18 04:31 Toxic Vacuolation Not Reportable 12/31/18 04:31 Dohle Bodies Not Reportable 12/31/18 04:31 Pelger-Huet Anomaly Not Reportable 12/31/18 04:31 Ema Rods Not Reportable 12/31/18 04:31 Platelet Estimate Consistent w auto 12/31/18 04:31 Clumped Platelets Not Reportable 12/31/18 04:31 Plt Clumps, EDTA Not Reportable 12/31/18 04:31 Large Platelets Not Reportable 12/31/18 04:31 Giant Platelets Not Reportable 12/31/18 04:31 Platelet Satelliting Not Reportable 12/31/18 04:31 Plt Morphology Comment Not Reportable 12/31/18 04:31 RBC Morphology Normal 12/31/18 04:31 Dimorphic RBCs Not Reportable 12/31/18 04:31 Polychromasia Not Reportable 12/31/18 04:31 Hypochromasia Not Reportable 12/31/18 04:31 Poikilocytosis Not Reportable 12/31/18 04:31 Anisocytosis Not Reportable 12/31/18 04:31 Microcytosis Not Reportable 12/31/18 04:31 Macrocytosis Not Reportable 12/31/18 04:31 Spherocytes Not Reportable 12/31/18 04:31 Pappenheimer Bodies Not Reportable 12/31/18 04:31 Sickle Cells Not Reportable 12/31/18 04:31 Target Cells Not Reportable 12/31/18 04:31 Tear Drop Cells Not Reportable 12/31/18 04:31 Ovalocytes Not Reportable 12/31/18 04:31 Helmet Cells Not Reportable 12/31/18 04:31 Yancey-Perkins Bodies Not Reportable 12/31/18 04:31 [place] Rings Not Reportable 12/31/18 04:31 Erasmo Cells Not Reportable 12/31/18 04:31 Bite Cells Not Reportable 12/31/18 04:31 Crenated Cell Not Reportable 12/31/18 04:31 Elliptocytes Not Reportable 12/31/18 04:31 Acanthocytes (Spur) Not Reportable 12/31/18 04:31 Rouleaux Not Reportable 12/31/18 04:31 Hemoglobin C Crystals Not Reportable 12/31/18 04:31 Schistocytes Not Reportable 12/31/18 04:31 Malaria parasites Not Reportable 12/31/18 04:31 Michael Bodies Not Reportable 12/31/18 04:31 Hem Pathologist Commnt No 12/31/18 04:31 VBG pH 7.301 (7.320-7.420) L 12/29/18 19:01 Sodium 137 mmol/L (137-145) 01/03/19 05:40 Potassium 4.5 mmol/L (3.6-5.0) 01/03/19 05:40 Chloride 108.6 mmol/L (98-107) H 01/03/19 05:40 Carbon Dioxide 14 mmol/L (22-30) L 01/03/19 05:40 Anion Gap 19 mmol/L 01/03/19 05:40 BUN 34 mg/dL (7-17) H 01/03/19 05:40 Creatinine 1.7 mg/dL (0.7-1.2) H 01/03/19 05:40 Estimated GFR 29 ml/min 01/03/19 05:40 BUN/Creatinine Ratio 20 % 01/03/19 05:40 Glucose 140 mg/dL (65-100) H 01/03/19 05:40 POC Glucose 149 (70-105) H 01/03/19 09:39 Hemoglobin A1c 13.0 % (4-6) H 12/30/18 03:34 Ketones Quantitative Negative (Negative) 12/29/18 19:01 Calcium 9.0 mg/dL (8.4-10.2) 01/03/19 05:40 Total Bilirubin 0.30 mg/dL (0.1-1.2) 12/29/18 19:01 AST 17 units/L (5-40) 12/29/18 19:01 ALT 10 units/L (7-56) 12/29/18 19:01 Alkaline Phosphatase 193 units/L (35-129) H 12/29/18 19:01 Total Protein 7.7 g/dL (6.3-8.2) 12/29/18 19:01 Albumin 3.5 g/dL (3.9-5) L 12/29/18 19:01 Albumin/Globulin Ratio 0.8 % 12/29/18 19:01 Vitamin B12 842.1 pg/mL (211-911) 12/30/18 19:12 TSH 0.556 mlU/mL (0.270-4.200) 12/30/18 19:12 Urine Color Yellow (Yellow) 12/29/18 Unknown Urine Turbidity Cloudy (Clear) 12/29/18 Unknown Urine pH 5.0 (5.0-7.0) 12/29/18 Unknown Ur Specific [place] 1.011 (1.003-1.030) 12/29/18 Unknown Urine Protein 100 mg/dl mg/dL (Negative) 12/29/18 Unknown Urine Glucose (UA) >=500 mg/dL (Negative) 12/29/18 Unknown Urine Ketones Neg mg/dL (Negative) 12/29/18 Unknown Urine Blood Lg (Negative) 12/29/18 Unknown Urine Nitrite Neg (Negative) 12/29/18 Unknown Urine Bilirubin Neg (Negative) 12/29/18 Unknown Urine Urobilinogen < 2.0 mg/dL (<2.0) 12/29/18 Unknown Ur Leukocyte Esterase Lg (Negative) 12/29/18 Unknown Urine WBC (Auto) > 182.0 /HPF (0.0-6.0) H 12/29/18 Unknown Urine RBC (Auto) 27.0 /HPF (0.0-6.0) 12/29/18 Unknown U Epithel Cells (Auto) 1.0 /HPF (0-13.0) 12/29/18 Unknown Urine WBC Clumps 2+ /HPF 12/29/18 Unknown Urine Mucus Few /HPF 12/29/18 Unknown Active Medications - Current Medications Current Medications: Generic Name Dose Route Start Last Admin Trade Name Freq PRN Reason Stop Dose Admin Acetaminophen 650 mg 12/30/18 00:48 12/31/18 10:40 Tylenol PO 650 mg Q4H PRN Administration Pain MILD(1-3)/Fever >100.5/NEAL Dextrose 0 ml 12/30/18 00:48 D50w (25gm) Syringe IV Q30MIN PRN Hypoglycemia Protocol Docusate Sodium 100 mg 12/30/18 10:00 01/03/19 09:51 Colace PO 100 mg BID ALF Administration Enoxaparin Sodium 30 mg 12/30/18 10:00 01/03/19 09:51 Enoxaparin SUB-Q 30 mg QDAY ALF Administration Hydralazine HCl 10 mg 12/30/18 00:54 12/30/18 10:30 Apresoline IV 10 mg Q4H PRN Administration Blood Pressure Hydromorphone HCl 0.5 mg 12/31/18 15:57 01/01/19 02:50 Dilaudid IV 0.5 mg Q3H PRN Administration Pain , Severe (7-10) Sodium Chloride 1,000 mls @ 75 mls/hr 12/30/18 01:00 01/03/19 01:28 Nacl 0.9% 1000 Ml IV 75 mls/hr DIRECT ALF Administration Insulin Glargine 30 units 12/31/18 18:36 01/03/19 09:51 Lantus SUB-Q 30 units QAMDIAB ALF Administration Insulin Human Lispro 0 unit 12/30/18 02:00 01/03/19 09:52 Humalog SUB-Q Not Given Q4HR [facility] Protocol Ondansetron HCl 4 mg 12/30/18 00:48 01/01/19 08:34 Zofran IV 4 mg Q8H PRN Administration Nausea And Vomiting Oxycodone/Acetaminophen 1 tab 12/31/18 13:35 12/31/18 14:00 Percocet 5/325 PO 1 tab Q6H PRN Administration Pain, Moderate (4-6) Sodium Chloride 10 ml 12/30/18 10:00 01/03/19 09:52 Sodium Chloride Flush Syringe 10 Ml IV 10 ml BID ALF Administration Sodium Chloride 10 ml 12/30/18 00:48 Sodium Chloride Flush Syringe 10 Ml IV PRN PRN LINE FLUSH Sodium Chloride 1 gm 01/02/19 10:00 01/03/19 09:51 Sodium Chloride PO 1 gm BID ALF Administration
[2019-01-03] MEDS: SODIUM BICARBONATE 650 MG TAB PO SCH ×2 (13:31→22:05)
[2019-01-03] MEDS: ONDANSETRON 4 MG/2 ML INJ IV PRN (13:37)
[2019-01-04] MEDS: SODIUM CHLORIDE 0.9% 1000 ML 1,000 ML IV SCH (04:52)
[2019-01-04 04:53] LABS: Calcium 8.8 mg/dL (8.4-10.2)
[2019-01-04] MEDS: INSULIN LISPRO 100 UNIT/ML SUB-Q SCH ×3 (08:21→16:37)
[2019-01-04] MEDS: INSULIN GLARGINE 100 UNITS/ML SUB-Q SCH (08:21)
[2019-01-04] MEDS: DOCUSATE SODIUM 100 MG CAP PO SCH (10:28)
[2019-01-04] MEDS: SODIUM BICARBONATE 650 MG TAB PO SCH (10:28)
[2019-01-04] MEDS: ENOXAPARIN 30 MG/0.3 ML INJ SUB-Q SCH (10:28)
[2019-01-04] MEDS: hydrALAZINE 20 MG/1 ML INJ IV PRN (10:36)
--- NOTE | 2019-01-04 12:01 | Progress Note ---
Assessment and Plan Assessment and plan: 68-year-old female with history of hypertension, diabetes, CKD, and kidney stones with history of of lower back pain and recurrent falls noted to have sepsis secondary to urinary tract infection , received 4 days of Rocephin, cultures negative to date MRI, lumbosacral spine x-ray, no acute changes, received physical therapy and occupational therapy, electrolyte imbalances corrected Acute kidney injury significantly improved, --Sepsis secondary to Urinary tract infection: Present on admission Received empiric antibiotics for 4 days Urine cultures negative to date Symptoms resolved --Hyponatremia; significantly improved Resolved, monitor electrolytes --ASHA; vasomotor nephropathy IV normal saline, Avoid nephrotoxic agents Closely monitor renal function --Hyperkalemia; resolved --DM2: Accu-Chek sliding scale coverage ADA diet, Lantus, HgbA1C 13.0, Adjust Insulin dose as needed --History of recurrent falls ; Fall precautions MRI mild microvascular angiopathy without infarction Sinus inflammatory disease[received 4 days of Rocephin] X-ray lumbosacral spines; Degenerative change, no acute abnormality PT,OT, rehabilitation as needed --Rehab and SNF placement when stable --HTN; moderate control Continue current antihypertensives and when necessary hydralazine --DVT PROPHYLAXIS Lovenox Placement when medically stable Hospitalist Physical - Constitutional Vitals: Temp Pulse Resp BP Pulse Ox 97.5 F L 93 H 20 178/75 97 01/04/19 07:30 01/04/19 10:36 01/04/19 10:00 01/04/19 10:36 01/04/19 10:00 General appearance: Present: no acute distress, well-nourished Results - Labs CBC & Chem 7: 01/03/19 05:40 01/04/19 03:50 Labs: Laboratory Last Values WBC 10.8 K/mm3 (4.5-11.0) 01/03/19 05:40 RBC 2.88 M/mm3 (3.65-5.03) L 01/03/19 05:40 Hgb 8.8 gm/dl (10.1-14.3) L 01/03/19 05:40 Hct 25.9 % (30.3-42.9) L 01/03/19 05:40 MCV 90 fl (79-97) 01/03/19 05:40 MCH 30 pg (28-32) 01/03/19 05:40 MCHC 34 % (30-34) 01/03/19 05:40 RDW 13.1 % (13.2-15.2) L 01/03/19 05:40 Plt Count 430 K/mm3 (140-440) 01/03/19 05:40 Lymph % (Auto) 10.4 % (13.4-35.0) L 01/03/19 05:40 [place] % (Auto) 11.1 % (0.0-7.3) H 01/03/19 05:40 Eos % (Auto) 2.0 % (0.0-4.3) 01/03/19 05:40 Baso % (Auto) 0.8 % (0.0-1.8) 01/03/19 05:40 Lymph # 1.1 K/mm3 (1.2-5.4) L 01/03/19 05:40 [place] # 1.2 K/mm3 (0.0-0.8) H 01/03/19 05:40 Eos # 0.2 K/mm3 (0.0-0.4) 01/03/19 05:40 Baso # 0.1 K/mm3 (0.0-0.1) 01/03/19 05:40 Add Manual Diff Complete 12/31/18 04:31 Total Counted 100 12/31/18 04:31 Seg Neutrophils % 75.7 % (40.0-70.0) H 01/03/19 05:40 Seg Neuts % (Manual) 91.0 % (40.0-70.0) H 12/31/18 04:31 Band Neutrophils % 0 % 12/31/18 04:31 Lymphocytes % (Manual) 4.0 % (13.4-35.0) L 12/31/18 04:31 Reactive Lymphs % (Man) 0 % 12/31/18 04:31 Monocytes % (Manual) 5.0 % (0.0-7.3) 12/31/18 04:31 Eosinophils % (Manual) 0 % (0.0-4.3) 12/31/18 04:31 Basophils % (Manual) 0 % (0.0-1.8) 12/31/18 04:31 Metamyelocytes % 0 % 12/31/18 04:31 Myelocytes % 0 % 12/31/18 04:31 Promyelocytes % 0 % 12/31/18 04:31 Blast Cells % 0 % 12/31/18 04:31 Nucleated RBC % Not Reportable 12/31/18 04:31 Seg Neutrophils # 8.2 K/mm3 (1.8-7.7) H 01/03/19 05:40 Seg Neutrophils # Man 18.7 K/mm3 (1.8-7.7) H 12/31/18 04:31 Band Neutrophils # 0.0 K/mm3 12/31/18 04:31 Lymphocytes # (Manual) 0.8 K/mm3 (1.2-5.4) L 12/31/18 04:31 Abs React Lymphs (Man) 0.0 K/mm3 12/31/18 04:31 Monocytes # (Manual) 1.0 K/mm3 (0.0-0.8) H 12/31/18 04:31 Eosinophils # (Manual) 0.0 K/mm3 (0.0-0.4) 12/31/18 04:31 Basophils # (Manual) 0.0 K/mm3 (0.0-0.1) 12/31/18 04:31 Metamyelocytes # 0.0 K/mm3 12/31/18 04:31 Myelocytes # 0.0 K/mm3 12/31/18 04:31 Promyelocytes # 0.0 K/mm3 12/31/18 04:31 Blast Cells # 0.0 K/mm3 12/31/18 04:31 WBC Morphology Not Reportable 12/31/18 04:31 Hypersegmented Neuts Not Reportable 12/31/18 04:31 Hyposegmented Neuts Not Reportable 12/31/18 04:31 Hypogranular Neuts Not Reportable 12/31/18 04:31 Smudge Cells Not Reportable 12/31/18 04:31 Toxic Granulation Not Reportable 12/31/18 04:31 Toxic Vacuolation Not Reportable 12/31/18 04:31 Dohle Bodies Not Reportable 12/31/18 04:31 Pelger-Huet Anomaly Not Reportable 12/31/18 04:31 Ema Rods Not Reportable 12/31/18 04:31 Platelet Estimate Consistent w auto 12/31/18 04:31 Clumped Platelets Not Reportable 12/31/18 04:31 Plt Clumps, EDTA Not Reportable 12/31/18 04:31 Large Platelets Not Reportable 12/31/18 04:31 Giant Platelets Not Reportable 12/31/18 04:31 Platelet Satelliting Not Reportable 12/31/18 04:31 Plt Morphology Comment Not Reportable 12/31/18 04:31 RBC Morphology Normal 12/31/18 04:31 Dimorphic RBCs Not Reportable 12/31/18 04:31 Polychromasia Not Reportable 12/31/18 04:31 Hypochromasia Not Reportable 12/31/18 04:31 Poikilocytosis Not Reportable 12/31/18 04:31 Anisocytosis Not Reportable 12/31/18 04:31 Microcytosis Not Reportable 12/31/18 04:31 Macrocytosis Not Reportable 12/31/18 04:31 Spherocytes Not Reportable 12/31/18 04:31 Pappenheimer Bodies Not Reportable 12/31/18 04:31 Sickle Cells Not Reportable 12/31/18 04:31 Target Cells Not Reportable 12/31/18 04:31 Tear Drop Cells Not Reportable 12/31/18 04:31 Ovalocytes Not Reportable 12/31/18 04:31 Helmet Cells Not Reportable 12/31/18 04:31 Yancey-Brogan Bodies Not Reportable 12/31/18 04:31 [place] Rings Not Reportable 12/31/18 04:31 Mcdougal Cells Not Reportable 12/31/18 04:31 Bite Cells Not Reportable 12/31/18 04:31 Crenated Cell Not Reportable 12/31/18 04:31 Elliptocytes Not Reportable 12/31/18 04:31 Acanthocytes (Spur) Not Reportable 12/31/18 04:31 Rouleaux Not Reportable 12/31/18 04:31 Hemoglobin C Crystals Not Reportable 12/31/18 04:31 Schistocytes Not Reportable 12/31/18 04:31 Malaria parasites Not Reportable 12/31/18 04:31 Michael Bodies Not Reportable 12/31/18 04:31 Hem Pathologist Commnt No 12/31/18 04:31 VBG pH 7.301 (7.320-7.420) L 12/29/18 19:01 Sodium 140 mmol/L (137-145) 01/04/19 03:50 Potassium 3.8 mmol/L (3.6-5.0) 01/04/19 03:50 Chloride 109.3 mmol/L (98-107) H 01/04/19 03:50 Carbon Dioxide 16 mmol/L (22-30) L 01/04/19 03:50 Anion Gap 19 mmol/L 01/04/19 03:50 BUN 22 mg/dL (7-17) H 01/04/19 03:50 Creatinine 1.3 mg/dL (0.7-1.2) H 01/04/19 03:50 Estimated GFR 40 ml/min 01/04/19 03:50 BUN/Creatinine Ratio 17 % 01/04/19 03:50 Glucose 60 mg/dL (65-100) L 01/04/19 03:50 POC Glucose 270 (70-105) H 01/04/19 11:31 Hemoglobin A1c 13.0 % (4-6) H 12/30/18 03:34 Ketones Quantitative Negative (Negative) 12/29/18 19:01 Calcium 8.8 mg/dL (8.4-10.2) 01/04/19 03:50 Total Bilirubin 0.30 mg/dL (0.1-1.2) 12/29/18 19:01 AST 17 units/L (5-40) 12/29/18 19:01 ALT 10 units/L (7-56) 12/29/18 19:01 Alkaline Phosphatase 193 units/L (35-129) H 12/29/18 19:01 Total Protein 7.7 g/dL (6.3-8.2) 12/29/18 19:01 Albumin 3.5 g/dL (3.9-5) L 12/29/18 19:01 Albumin/Globulin Ratio 0.8 % 12/29/18 19:01 Vitamin B12 842.1 pg/mL (211-911) 12/30/18 19:12 TSH 0.556 mlU/mL (0.270-4.200) 12/30/18 19:12 Urine Color Yellow (Yellow) 12/29/18 Unknown Urine Turbidity Cloudy (Clear) 12/29/18 Unknown Urine pH 5.0 (5.0-7.0) 12/29/18 Unknown Ur Specific [place] 1.011 (1.003-1.030) 12/29/18 Unknown Urine Protein 100 mg/dl mg/dL (Negative) 12/29/18 Unknown Urine Glucose (UA) >=500 mg/dL (Negative) 12/29/18 Unknown Urine Ketones Neg mg/dL (Negative) 12/29/18 Unknown Urine Blood Lg (Negative) 12/29/18 Unknown Urine Nitrite Neg (Negative) 12/29/18 Unknown Urine Bilirubin Neg (Negative) 12/29/18 Unknown Urine Urobilinogen < 2.0 mg/dL (<2.0) 12/29/18 Unknown Ur Leukocyte Esterase Lg (Negative) 12/29/18 Unknown Urine WBC (Auto) > 182.0 /HPF (0.0-6.0) H 12/29/18 Unknown Urine RBC (Auto) 27.0 /HPF (0.0-6.0) 12/29/18 Unknown U Epithel Cells (Auto) 1.0 /HPF (0-13.0) 12/29/18 Unknown Urine WBC Clumps 2+ /HPF 12/29/18 Unknown Urine Mucus Few /HPF 12/29/18 Unknown Active Medications - Current Medications Current Medications: Generic Name Dose Route Start Last Admin Trade Name Freq PRN Reason Stop Dose Admin Acetaminophen 650 mg 12/30/18 00:48 12/31/18 10:40 Tylenol PO 650 mg Q4H PRN Administration Pain MILD(1-3)/Fever >100.5/NEAL Dextrose 0 ml 12/30/18 00:48 D50w (25gm) Syringe IV Q30MIN PRN Hypoglycemia Protocol Docusate Sodium 100 mg 12/30/18 10:00 01/04/19 10:28 Colace PO 100 mg BID ALF Administration Enoxaparin Sodium 30 mg 12/30/18 10:00 01/04/19 10:28 Enoxaparin SUB-Q 30 mg QDAY ALF Administration Hydralazine HCl 10 mg 12/30/18 00:54 01/04/19 10:36 Apresoline IV 10 mg Q4H PRN Administration Blood Pressure Hydromorphone HCl 0.5 mg 12/31/18 15:57 01/01/19 02:50 Dilaudid IV 0.5 mg Q3H PRN Administration Pain , Severe (7-10) Sodium Chloride 1,000 mls @ 75 mls/hr 12/30/18 01:00 01/04/19 04:52 Nacl 0.9% 1000 Ml IV 75 mls/hr DIRECT ALF Administration Insulin Glargine 30 units 12/31/18 18:36 01/04/19 08:21 Lantus SUB-Q Not Given QAMDIAB [facility] Insulin Human Lispro 0 unit 01/03/19 11:30 01/04/19 08:21 Humalog SUB-Q Not Given ACHS [facility] Protocol Ondansetron HCl 4 mg 12/30/18 00:48 01/03/19 13:37 Zofran IV 4 mg Q8H PRN Administration Nausea And Vomiting Oxycodone/Acetaminophen 1 tab 12/31/18 13:35 12/31/18 14:00 Percocet 5/325 PO 1 tab Q6H PRN Administration Pain, Moderate (4-6) Sodium Bicarbonate 650 mg 01/03/19 12:00 01/04/19 10:28 Sodium Bicarbonate PO 650 mg BID ALF Administration Sodium Chloride 10 ml 12/30/18 10:00 01/04/19 10:28 Sodium Chloride Flush Syringe 10 Ml IV 10 ml BID ALF Administration Sodium Chloride 10 ml 12/30/18 00:48 Sodium Chloride Flush Syringe 10 Ml IV PRN PRN LINE FLUSH Sodium Chloride 1 gm 01/02/19 10:00 01/03/19 22:05 Sodium Chloride PO 1 gm BID ALF Administration
--- NOTE | 2019-01-04 14:09 | Discharge Summary ---
Providers - Providers Date of Admission: 12/29/18 23:21 Date of discharge: 01/04/19 Attending physician: LYSSA ALCALA 12/30/18 00:52 Occupational Therapy Evaluate and Treat [CONS] Routine Comment: Reason For Exam: recent falls Physical Therapy Evaluation and Treat [CONS] Routine Comment: Reason For Exam: recent falls 12/30/18 02:00 Consult to Physician [CONS] Routine Comment: Consulting Provider: JOSE SAVAGE Physician Instructions: Reason For Exam: AMS 01/01/19 07:40 Consult to Case Management [CONS] Routine Services Needed at Discharge: Home Health Services Notified:: ALLISON Comment:: SNF/Rehab Primary care physician: ASSISTANT PRINCIPAL Hospitalization Reason for admission: Recurrent falls/urinary tract infection Condition: Fair Pertinent studies: MRI brain and lumbar spine x-ray Hospital course: 68-year-old female with history of hypertension, diabetes, CKD, and kidney stones with history of of lower back pain and recurrent falls, noted to have sepsis secondary to urinary tract infection , received 4 days of Rocephin, cultures negative to date, MRI, lumbosacral spine x-ray, no acute changes, received physical therapy and occupational therapy, electrolyte imbalances corrected.Acute kidney injury significantly improved, today patient is comfortable no new complaints Vital signs stable, episode of hypoglycemia secondary to poor oral intake. Insulin dose reduced from 30 units Lantus to 15 units of Lantus daily at bedtime, Avoid hypoglycemia. Discussed the case with insurance physician [facility] Patient stable at discharge Discharge diagnosis; --Sepsis secondary to Urinary tract infection: Present on admission Received Rocephin for 4 days,Symptoms resolved Urine cultures negative to date --Hyponatremia; significantly improved, Resolved, --ASHA; vasomotor nephropathy IV normal saline, Avoid nephrotoxic agents,Resolved --Hyperkalemia; resolved --DM2: Hypoglycemia episode Accu-Chek sliding scale coverage ADA diet, Lantus, HgbA1C 13.0, Adjust Insulin dose as needed --History of recurrent falls ;Fall precautions MRI mild microvascular angiopathy without infarction Sinus inflammatory disease[received 4 days of Rocephin] X-ray lumbosacral spines; Degenerative change, no acute abnormality PT,OT, rehabilitation as needed --HTN; moderate control Continue current antihypertensives and when necessary hydralazine --DVT PROPHYLAXIS :Lovenox --Discharged to subacute rehabilitation placement today Stable at discharge Disposition: [id number]-[id number] SNF [facility] Time spent for discharge: 32 min Core Measure Documentation - Palliative Care Palliative Care/ Comfort Measures: Not Applicable - Core Measures Any of the following diagnoses?: none Exam - Constitutional Vitals: Temp Pulse Resp BP Pulse Ox 97.5 F L 93 H 20 178/75 97 01/04/19 07:30 01/04/19 10:36 01/04/19 10:00 01/04/19 10:36 01/04/19 10:00 General appearance: Present: no acute distress, well-nourished - EENT Eyes: Present: PERRL, EOM intact - Neck Neck: Present: supple, normal ROM - Respiratory Respiratory effort: normal Respiratory: bilateral: diminished, negative: rales, rhonchi, wheezing - Cardiovascular Rhythm: regular Heart Sounds: Present: S1 & S2 - Extremities Extremities: no ischemia, No edema - Abdominal General gastrointestinal: Present: soft, non-tender, non-distended, normal bowel sounds - Integumentary Integumentary: Present: clear, warm - Musculoskeletal Musculoskeletal: generalized weakness - Psychiatric Psychiatric: appropriate mood/affect, other (confused at times) - Neurologic Neurologic: moves all extremities Plan Activity: advance as tolerated, fall precautions Diet: diabetic Special Instructions: physical therapy, occupational therapy Additional Instructions: Fall precautions. Avoid hypoglycemia Follow up with: PRIMARY CARE, [Primary Care Provider] - 7 Days
[2019-01-04 15:16] VITALS: BP 155/63
[2019-01-04] MEDS: ONDANSETRON 4 MG/2 ML INJ IV PRN (16:34)
== END 2019-01-04 17:00 | DRG 871 ==
LOC: ED 17:20 → CC1 23:21 → 2B-ACE 12-30 00:58
PROVIDERS: ADMIT Internal Medicine; ATTEND Internal Medicine
DX: A41.9 Sepsis, unspecified organism (principal); N17.0 Acute kidney failure with tubular necrosis; N30.00 Acute cystitis without hematuria; E11.65 Type 2 diabetes mellitus with hyperglycemia; E11.22 Type 2 diabetes mellitus with diabetic chronic kidney disease; E87.5 Hyperkalemia; N18.9 Chronic kidney disease, unspecified; I12.9 Hypertensive chronic kidney disease with stage 1 through stage 4 chronic kidney disease, or unspecified chronic kidney disease; Z87.442 Personal history of urinary calculi; Z90.49 Acquired absence of other specified parts of digestive tract; Z88.8 Allergy status to other drugs, medicaments and biological substances; Z79.82 Long term (current) use of aspirin; Z79.84 Long term (current) use of oral hypoglycemic drugs
CPT/HCPCS: 36415; 70551; 72100; 80048; 80053; 81001; 82010; 82607; 82805; 82962; 83036; 84132; 84443; 85007; 85025; 87086; G0378; J0360; J0696; J1170; J1650; J1815; J2405; J7030; J7050